=== PATIENT | female | born 1990 | race Caucasian/White ===

== ENCOUNTER → 2024-04-06 16:06 | Outpatient (CLI) | payer OTHER, SELFPAY ==
--- NOTE | 2024-04-06 16:09 | DI.US.S_ITS ---
PROCEDURE: US OB >= 14 WEEKS FETUS INDICATIONS: ANATOMY SCAN OUTSIDE/PRIOR DATING DATA: The calculations are made using the AMPARO of 06/25/2024. TECHNIQUE: Real-time scanning was performed of the fetus, with image documentation and biometric measurements. Endovaginal scanning: Not performed COMPARISON: None. FINDINGS: General: A single living intrauterine gestation is present. Presentation: Oblique. Placenta: Placental position is anterior , without previa. Amniotic fluid index: 20 cm, normal range is 5-24 cm. Single deepest vertical pocket is 8.2 cm. heart rate: 160 beats per minute. Maternal cervical canal: 3.3 cm long. Normal lower limit is 2.5 cm. biometrics: Biparietal diameter: 7 centimeter, 28 weeks 0 days Head circumference: 25.4 centimeters, 27 weeks 4 days Abdominal circumference: 26.2 centimeters, 30 weeks 2 days Femur length: 5.3 centimeters, 28 weeks 1 Clinically estimated gestational age: Weeks 4 days Composite gestational age from present scan: 28 weeks 4 days Estimated weight and percentile: 1349 grams, 68th percentile Anatomic survey: Neuro: Ventricles are non-dilated at less than 10 mm. Cisterna magna is normal at 3-11 mm. Cerebellum is normal in size and morphology. Nuchal skin fold: Normal at less than 6 mm between 14-21 weeks gestational age. Face: Nose and lips, facial profile are normal. Spine: Sacral spine not well visualized. Heart: 4-chambered heart is present, with normal ventricular outflow tracts. Diaphragm: Diaphragm is intact. Stomach: Left-sided stomach is present. Kidneys: No hydronephrosis. Normal is less than 5 mm in 2nd trimester, less than 7 mm in 3rd trimester. Cord: 3-vessel cord has orthotopic insertion. Bladder: Normal in size. Extremities: All 4 extremities identified. IMPRESSION: Single living intrauterine at 28 weeks 4 days, AMPARO 06/25/2024. Estimated weight of 1349 grams, 68th percentile. Sacral spine not well visualized. Remaining anatomy survey is within normal limits. We strive to produce accurate, complete, and clear reports of imaging services. To assist us in improving patient care, this report was composed using standard report templates and voice recognition software. Therefore, it may contain abnormal punctuation, insertions and/or omissions. Occasional wrong-word or sound-alike substitutions may occur. Though we review the report and make efforts to correct it, we do recommend that the report be read carefully in proper context to recognize any text inaccuracies. Dictated by: Micha Her M.D. on 04/06/2024 at 19:56 Approved by: Micha Her M.D. on 04/06/2024 at 20:07
== END ==
LOC: US 16:09
PROVIDERS: Referring Provider Advanced Practice Midwife; Visit Provider Advanced Practice Midwife
DX: Z34.83 Encounter for supervision of other normal pregnancy, third trimester (principal); Z3A.28 28 weeks gestation of pregnancy
CPT/HCPCS: 76811

== ENCOUNTER 2024-06-18 07:22 | Inpatient (IN) | payer OTHER, MEDICAID, SELFPAY ==
--- NOTE | 2024-06-18 07:47 | P.HPOB_ITS ---
OB HPI Date/Time Date of admission: 06/18/24 Date Patient Seen: 06/18/24 Time Patient Seen: 07:47 History of Present Condition Chief complaint: INDUCTION : 8 Para: 6 Estimated Date of Delivery: 06/25/24 Estimated Gestational Age (weeks): 39.0 Narrative: Noa Feng is a 33 year old female @ 39wks 0 days by 7wk US presents for elective IOL. Had a baez balloon placed in clinic that came out around midnight last night. Has noticed continued bloody show. +FM. No significant continued cramping or leaking of fluid. Uncomplicated care with CNMs, transferred in from [place], [place] at 26wks. Open to all interventions to begin labor, but planning no medications for analgesia or anesthesia. is supportive at her side. Indications Indication for induction OB: maternal discomfort (elective) History of Present care: good care, initiated at week # (6), number of visits (8) and pounds weight gain (42) Dating criteria: based on 1st trimester US only Ultrasounds: normal 1st trimester US and normal mid trimester US Obstetrical complications: none Medical complications: none Preadmission Labs Blood type: A (+) positive -: Antibody screen: negative, GBS status: negative, HBsAG: negative, HIV: negative and RPR/VDLR: negative -: Chlamydia screen: not detected and Gonorrhea screen: not detected -: Rubella: immune and Varicella: immune HCT: 37.5 HCAB: negative 1 hr GTT: 85 Narrative: Prior (ies) History: see above Evaluation Evaluation Baseline heart rate: 140 Variability: Moderate (11-25) monitor accelerations: Present Monitor Decelerations: Absent Contraction Frequency (minutes): 0 Uterine Contraction Intensity: Mild Status: Category l Dilation (cm): 5 Effacement (%): 80 Dilation: >/=5 cm Effacement: >/=80% station: -2 Position of cervix: posterior Consistency: soft Reese score: 9 PFSH Medical History (Updated 06/18/24 @ 07:57 by Lisa Price CNM) HSV-1 infection Surgical History (Updated 06/18/24 @ 07:57 by Lisa Price CNM) H/O oral surgery Social History (Updated 06/18/24 @ 08:01 by Lisa Price CNM) marital status: number of children: 6 household members: family and children lives independently: Yes caregiver/support person: No housing: house education level: college do you feel safe at home: Yes Smoking Status: Never smoker Meds Home Medications and Allergies Allergies Allergy/AdvReac Type Severity Reaction Status Date / Time ibuprofen Allergy Severe Anaphylaxis Verified 06/18/24 07:47 Review of Systems Review of Systems ROS: Yes All systems reviewed with the patient and are negative except as otherwise documented OB Exam Vital signs Blood Pressure: 122/75 Pulse Rate: 99 Temperature: 97.3 F Resp Effort & Inspection: normal respiratory effort and able to speak in complete sentences Auscultation: clear to auscultation bilaterally Cardio Rate: regular rate Rhythm: regular rhythm Presentation: vertex Objective Labs 06/18/24 08:25 Assessment and Plan Assessment and Plan Assessment and Plan narrative: A: Term Grand multipara Elective IOL, favorable No indication for antibiotics at this time Cat FHR P: Admit, routine orders with pitocin, per protocol. Discussed options for induction: breast pump for nipple stimulation vs. pitocin vs. AROM. Hammad elected pitocin which has been ordered. Reassess in 4 hours or sooner, PRN. Time-Based Coding :: [TOTAL MINUTES] spent with patient and on the chart (including review of chart, obtaining history, exam, reviewing outside data, placing orders, documenting exam and treatment plan, and counseling patient) on [DATE].
[2024-06-18 08:07] VITALS: BP 122/75; PULSE 99; TEMP 36.3
[2024-06-18] MEDS: LACTATED RINGERS 1,000 ML 100 ML IV (08:25)
[2024-06-18 09:06] LABS: Add Manual Diff / Slide Review NO; Basophils Absolute Auto 100 /uL (0-100); Basophils Percent Auto 0.4 % (0-2); Eosinophils Absolute Auto 500 /uL (0-450); Eosinophils Percent Auto 3.3 % (2-4); Hemoglobin 11.3 g/dL (12.0-16.0); Lymphocytes Absolute Auto 3000 /uL (1100-4500); Lymphocytes Percent Auto 20.9 % (25-40); Mean Corpuscular HGB Conc 33.1 % (30-36); Mean Corpuscular Volume 90.6 fL (80-100); Monocytes Absolute Auto 800 /uL (0-900); Monocytes Percent Auto 5.6 % (3-14); Neutrophils Absolute Auto 9900 /uL (1500-7000); Neutrophils Percent Auto 69.8 % (50-75); Platelet Count 267 X10^3/uL (150-400); Red Blood Cell Count 3.76 X10^6/uL (4.0-5.2); Red Cell Distribution Width 14.3 % (11.6-14.8); White Blood Cell Count 14.2 X10^3/uL (4.5-11.0)
[2024-06-18] MEDS: OXYTOCIN PREMIX 30 UNIT/500 ML PLAST..BAG IV (09:29)
[2024-06-18] MEDS: FAMOTIDINE 20 MG/2 ML VIAL IV (09:30)
--- NOTE | 2024-06-18 13:10 | PM.OBPNLAB ---
Date/Time Date Patient Seen: 06/18/24 Time Patient Seen: 13:00 Pain Control Pain control: tolerating well Comments: Coping well with strong, regular contractions, utilizing music, headphones, fan, touch and encouragement from . Hammad does not want her membranes ruptured at this time. and Hammad's mother supportive at bedside. VS: BP- 121/57, HR- 78, afebrile Pelvic Exam Dilation (cm): 7 Effacement (%): 80 station: -2 Amniotic membrane status: Bulging Contractions Monitor mode: External (Dionna) Pitocin rate (mU/min): 4 Contraction frequency (min): 1 (30 sec - 2 min) Contraction duration (min): 1 (45sec - 1 min) Contraction pattern: Regular Contraction intensity: Strong/Firm Status status: Category ll Heart Rate Baseline: 145 Monitor Accelerations: Absent Monitor Decelerations: Variable Monitor Variability: Moderate Comments: Overall reassuring Assessment and Plan Assessment: active labor Plan: continuous present management Comments: Labor progressing well with pitocin augmentation. Will titrate down the pitocin, as able. Continuous labor support. Expect second stage soon.
[2024-06-18 13:46] VITALS: BP 122/75
--- NOTE | 2024-06-18 15:17 | P.PCNOB_ITS ---
Events: Labor Induction (elective) Labor & Delivery Delivery date: 06/18/24 Intrapartal Events: None Cervical ripening method: per Baez bulb protocol Induction method: per pitocin protocol Delivery augmentation: rupture of membranes and pitocin Delivery monitor: external FHT and external uterine Route of delivery: Episiotomy description: None L&D Laceration Description: None Quantitative Blood Loss: 200 Anesthesia Type: None Complications: Elective IOL progressed well with baez balloon, pitocin (max dose 6mu/min) and AROM. Noa coped well with position changes, relaxation techniques and c ontinuous labor support by CNM, SNM and Hammad's and mother. Hammad labored on hands and knees until she asked for CNM to rupture membranes. AROM performed by CNM and revealed clear fluid and CE of 9cm. Hammad then moved to her L side where she began to feel a spontaneous urge to push and was presumed complete. of a single live vigorous baby boy in DELMAR over an intact vagina and perineum. No n uchal cord and the shoulders delivered easily. Baby was placed on maternal abdomen for drying and skin to skin. Pitocin given for active managment of the 3rd stage. Apgars 9/9. DCC until cord stopped pulsing at which point was double clamped by SNM and cut by FOB. Cord blood collected. Gunter delivery of apparently intact placenta, membranes and 3 vessel cord with maternal effort. Fundus immediately firm and bleeding minimal. QBL 200mL. Mother and baby skin to skin and stable when I left the room. [place] Baby 1: Infant gender: Male Presentation: vertex Position: Left Occiput Anterior Placenta delivery description: Spontaneous and Normal Configuration Cord Vessel Description: 3 Vessels score (1 min): 9 score (5 min): 9 weight: 4.076 kg Plan for aftercare: Routine care
[2024-06-18] MEDS: TRANEXAMIC ACID 1,000 MG in SODIUM CHLORIDE 0.9% 100 ML 600 MG IV (16:02)
[2024-06-18] MEDS: ACETAMINOPHEN 325 MG TABLET 650 MG PO ×2 (16:25→22:30)
[2024-06-18] MEDS: WITCH HAZEL/GLYCERIN PADS 1 EACH TOP (20:01)
[2024-06-18] MEDS: DERMOPLAST SPRAY 20% 60 ML 1 SPRAY TOP (20:01)
[2024-06-19] MEDS: ACETAMINOPHEN 325 MG TABLET 650 MG PO ×2 (04:26→10:08)
[2024-06-19] MEDS: DOCUSATE 100 MG CAPSULE 200 MG PO (08:17)
--- NOTE | 2024-06-19 09:39 | P.DS_ITS ---
Discharge Providers Provider Date of admission: 06/18/24 07:22 Discharge Date: 06/19/24 Primary care physician: DICK Garcia CNM Consults: 06/19/24 15:10 Consult to Inspector And Tester Routine Comment: Discharge provider: Lisa Price CNM Summary Hospital Course Date Patient Seen: 06/19/24 Time Patient Seen: 09:39 Diagnoses: O80 Hospital Course: Elective IOL with Craig balloon, pitocin and AROM led to NSVB with no lacerations. PPD1: Voiding, ambulating and independently. Tolerating a general diet. Cramping pain is well controlled with Tylenol. Vaginal bleeding is light to moderate, without clots. She is eager for discharge to home today. Her and kids are planning to be helpful at home. Peripartum Data Infant Delivery Method: Natural Vaginal Laceration Description: None Episiotomy description: None [place] 1: Gender: Male Disposition of : home Discharge Diagnosis (1) Encounter for full-term uncomplicated delivery: Status: Acute Problem Details: routine course Status at Discharge Cognitive/behavioral status at discharge: oriented and calm Functional status at discharge: independent ambulation Overall status at discharge: patient is progressing back to baseline Time Spent with Patient Time attestation: Total time spent providing and/or coordinating discharge services: Objective Labs 06/18/24 08:25 Labs: Laboratory Results - last 24 hr 06/18/24 08:25 Blood Type A Positive Antibody Screen Negative Exam Vital Signs (past 8 hours): BP 132/64, HR 72, RR 16, T 97.5F Temporal, Sp)2 98% on RA Const General: healthy appearing and comfortable Resp Effort & Inspection: normal respiratory effort and able to speak in complete sentences Other: Fundus firm @ U-1, lochia moderate, peineum intact Psych Appearance: grossly normal and well kempt Mental Status: mental status grossly normal Affect: normal affect Thought Process: normal Discharge Plan Discharge Plan Patient Disposition: Home Discharge orders & Medications Prescriptions: No Action No Known Home Medications Follow up/Referrals: Lisa Price CNM [[facility]] - (2 week and 6 week follow-up appointments scheduled and in your email) Diet/Activity/Treatments Diet: Diet as Tolerated and Regular Activity: minimal activity x 2 week, no heavy lifting for 4 weeks Skin/Wound/Dressing Care Report to your healthcare provider any signs of infection, such as:: chills, fever, increased pain, unusual drainage and unusual redness Visit Report/Discharge Packet Stand Alone Forms: Discharge: Care, Patient Portal/API, Stroke Signs & Symptoms
== END 2024-06-19 11:00 | disposition home or self-care (01) | DRG 807 ==
PROVIDERS: Admitting Provider Nurse Practitioner Obstetrics & Gynecology; Referring Provider Nurse Practitioner Obstetrics & Gynecology; Visit Provider Nurse Practitioner Obstetrics & Gynecology
DX: O80 Encounter for full-term uncomplicated delivery (principal); Z37.0 Single live birth; Z3A.39 39 weeks gestation of pregnancy
CPT/HCPCS: 36415; 59050; 85025; 86850; 86900; 86901; G0379; J2590

== ENCOUNTER 2024-12-27 10:34 | Emergency (ER) | payer OTHER, SELFPAY ==
[2024-12-27 10:38] VITALS: BP 118/68; PULSE 79; RESP 18; TEMP 36.2; O2SAT 97; BMI 29.9
--- NOTE | 2024-12-27 10:43 | DI.RAD.S_ITS ---
PROCEDURE: XR ANKLE RT MIN 3V INDICATIONS: felt crack, pain, swelling TECHNIQUE: 3 views of the ankle were acquired. COMPARISON: None. FINDINGS: Bones: No acute fractures or dislocations. Well corticated ossification inferior to the lateral malleolus is consistent with remote trauma. Ankle mortise is normally aligned. No suspicious bony lesions. Soft tissues: No tibiotalar joint effusion. Achilles tendon appears normal. IMPRESSION: No acute bony abnormality or significant effusion. Dictated by: Willie Rivero M.D. on 12/27/2024 at 11:25 Approved by: Willie Rivero M.D. on 12/27/2024 at 11:31
[2024-12-27 11:28] VITALS: RESP 14
--- NOTE | 2024-12-27 11:31 | ED_ITS ---
HPI - Extremity Injury (Lower) <Rupal Younger PA-C - Last Filed: 12/27/24 11:56> General Chief Complaint: Extremity Injury, Lower Stated Complaint: Possible broken right ankle Time Seen by Provider: 12/27/24 11:30 History of Present Illness HPI Narrative: 34-year-old female presents to the ED status post a right ankle injury sustained just prior to arrival. Patient states she was just getting out of the car when she landed on her right ankle which twisted. Since then, patient has had swelling, pain in the right lateral ankle area, patient is unable to bear weight due to pain. Patient does have a history of a prior ankle fracture in that same ankle. No numbness, tingling, weakness. Patient is currently . Allergic to ibuprofen. Related Data Home Medications Medication Instructions Recorded Confirmed No Known Home Medications 06/18/24 06/18/24 Allergies Allergy/AdvReac Type Severity Reaction Status Date / Time ibuprofen Allergy Severe Anaphylaxis Verified 06/18/24 07:47 Review of Systems <Rupal Younger PA-C - Last Filed: 12/27/24 11:56> Constitutional Constitutional: Denies chills, Denies fatigue, Denies fever(s), Denies frequent falls, Denies lethargy and Denies weakness Eyes Eyes: Denies change in vision, Denies eye discharge, Denies irritation and Denies loss of vision ENT Ears, Nose, Mouth, and Throat: Denies change in voice, Denies dizziness, Denies neck pain, Denies sore throat and Denies throat swelling Cardiovascular Cardiovascular: Denies chest pain, Denies irregular heart rhythm, Denies lightheadedness, Denies palpitations, Denies dyspnea, Denies dyspnea on exertion and Denies orthopnea Respiratory Respiratory: Denies cough, Denies dyspnea, Denies dyspnea on exertion and Denies wheezing Gastrointestinal Gastrointestinal: Denies abdominal pain, Denies change in bowel habits, Denies diarrhea, Denies nausea and Denies vomiting Musculoskeletal Musculoskeletal: Denies neck pain and Denies numbness Comments: Right ankle swelling, pain Integumentary/Breasts Skin/Breast: Denies pruritus, Denies erythema, Denies rash and Denies wounds Neurologic Neurologic: Denies behavioral changes, Denies confusion, Denies dizziness, Denies frequent falls, Denies loss of vision, Denies numbness and Denies weakness Psychiatric Psychiatric: Denies anxiety, Denies behavioral changes, Denies confusion, Denies depression, Denies homicidal ideation and Denies suicidal ideation Endocrine Endocrine: Denies fatigue, Denies flushing and Denies palpitations Hematologic/Lymphatic Hematologic/Lymphatic: Denies easy bruising Allergic/Immunologic Allergic/Immunologic: Denies urticaria, Denies throat swelling and Denies wheezing Patient History <Rupal Younger PA-C - Last Filed: 12/27/24 11:56> Medical History HSV-1 infection Surgical History H/O oral surgery Social History marital status: number of children: 6 household members: family and children lives independently: Yes caregiver/support person: No housing: house education level: college do you feel safe at home: Yes Smoking Status: Never smoker Smoking Status: Never smoker Exam <Rupal Younger PA-C - Last Filed: 12/27/24 11:56> Narrative Exam Narrative: Const General:?cooperative, healthy appearing and comfortable [facility] Head:?normal to inspection Ears:?hearing grossly normal bilaterally Nose:?external nose normal Face and sinus:?normal facial exam and sinuses nontender Mouth:?oral mucosae normal Throat:?posterior oropharynx normal Eyes General:?appearance normal, both eyes and all related structures Neck Neck:?normal visual inspection and no lymphadenopathy noted Resp Effort & Inspection:?normal respiratory effort Auscultation:?clear to auscultation bilaterally Cardio Rate:?regular rate Rhythm:?regular rhythm Musculoskeletal There is some swelling, tenderness to palpation in the region of the lateral malleolus of the right ankle. Unable to bear weight due to pain. Sensation is intact. No bruising. No deformities. Neurovascularly intact. Neuro General:?patient alert, patient awake and patient oriented x3 Initial Vital Signs Initial Vital Signs: Vital Signs Temperature 97.1 F L 12/27/24 10:38 Pulse Rate 79 12/27/24 10:38 Respiratory Rate 18 12/27/24 10:38 Blood Pressure 118/68 12/27/24 10:38 Pulse Oximetry 97 12/27/24 10:38 Oxygen Delivery Method Room Air 12/27/24 10:38 <Brenda Choudhury DO - Last Filed: 12/27/24 16:44> Initial Vital Signs Initial Vital Signs: Vital Signs Temperature 97.1 F L 12/27/24 10:38 Pulse Rate 79 12/27/24 10:38 Respiratory Rate 18 12/27/24 10:38 Blood Pressure 118/68 12/27/24 10:38 Pulse Oximetry 97 12/27/24 10:38 Oxygen Delivery Method Room Air 12/27/24 10:38 Course <Rupal Younger PA-C - Last Filed: 12/27/24 11:56> Orders Ordered: ED Orders 12/27/24 10:43 XR ankle RT min 3V Stat Discontinued Medications Acetaminophen (Acetaminophen 325 Mg Tablet) 975 mg PO NOW ONE Stop: 12/27/24 11:31 Last Admin: 12/27/24 11:34 Dose: 975 mg Documented By: SPF Vital Signs Vital signs: Vital Signs - 8 hr 12/27/24 10:38 12/27/24 11:28 12/27/24 11:50 Temperature 97.1 F L Pulse Rate 79 74 Respiratory Rate 18 14 14 Blood Pressure 118/68 117/73 Pulse Oximetry 97 97 Oxygen Delivery Method Room Air Room Air <Brenda Choudhury DO - Last Filed: 12/27/24 16:44> Orders Ordered: ED Orders 12/27/24 10:43 XR ankle RT min 3V Stat Discontinued Medications Acetaminophen (Acetaminophen 325 Mg Tablet) 975 mg PO NOW ONE Stop: 12/27/24 11:31 Last Admin: 12/27/24 11:34 Dose: 975 mg Documented By: SPF Vital Signs Vital signs: Vital Signs - 8 hr 12/27/24 10:38 12/27/24 11:28 12/27/24 11:50 Temperature 97.1 F L Pulse Rate 79 74 Respiratory Rate 18 14 14 Blood Pressure 118/68 117/73 Pulse Oximetry 97 97 Oxygen Delivery Method Room Air Room Air MDM - Extremity Injury (Lower) <Rupal Younger PA-C - Last Filed: 12/27/24 11:56> Lab Data Labs: Point of Care Testing Test Results Negative MDM Narrative Medical decision making narrative: 34-year-old female presents to the ED status post a right ankle injury sustained just prior to arrival. X-ray was obtained which shows no acute bony abnormality or significant effusion. There is a well corticated ossification inferior to the lateral malleolus which is consistent with remote trauma. Discussed findings with patient. Ankle was Artur wrapped, crutches provided for ambulation. Patient was given Tylenol for pain control. Recommend RICE, heat after 24 hours, Tylenol. Weight-bearing as tolerated. Recommend follow-up with PCP as soon as possible. ED return precautions were discussed with patient. Patient verbalized understanding. Medical records reviewed: Yes <Brenda Choudhury DO - Last Filed: 12/27/24 16:44> Lab Data Labs: Point of Care Testing Test Results Negative Discharge Plan Departure Patient Disposition: Home Clinical Impression: Ankle sprain and strain Instructions: DI for Ankle Sprain Activity Restrictions/Additional Instructions: Were evaluated in the ED today for an ankle injury. The x-ray did not show any fractures or dislocations. It appears that you have sprained your right ankle. You your ankle has been Artur wrapped for comfort and healing. You have been provided crutches to get around. You may start bearing weight as tolerated. You may rest, elevate your ankle above heart level to reduce swelling and pain. You may apply ice for the 1st 24 hours, followed by heat. You may take Tylenol for pain. Please follow-up with your PCP as soon as possible. Return to the ED if you have worsening symptoms, numbness, tingling, weakness. Prescriptions: No Action No Known Home Medications Stand Alone Forms: Patient Portal/API/Survey ED Sign-out <Brenda Choudhury DO - Last Filed: 12/27/24 16:44> Cosign ED Attending Coszayature Attestation: I was immediately available in the department for consultation.
[2024-12-27] MEDS: ACETAMINOPHEN 325 MG TABLET 975 MG PO (11:34)
[2024-12-27 11:50] VITALS: BP 117/73; PULSE 74; RESP 14; O2SAT 97
== END 2024-12-27 11:55 | disposition home or self-care (01) ==
PROVIDERS: Emergency Provider Student in an Organized Health Care Education/Training Program
DX: S93.401A Sprain of unspecified ligament of right ankle, initial encounter (principal); X50.1XXA Overexertion from prolonged static or awkward postures, initial encounter
CPT/HCPCS: 73610; 81025; 99283

== ENCOUNTER 2025-07-24 04:01 | Emergency (ER) | payer OTHER, SELFPAY ==
[2025-07-24 04:06] VITALS: BP 129/76; PULSE 71; RESP 18; TEMP 36.5; O2SAT 98; BMI 30.7
--- NOTE | 2025-07-24 04:21 | ED_ITS ---
HPI - Back Pain/Injury
--- NOTE | 2025-07-24 04:21 | ED.BACK ---
HPI - Back Pain/Injury General Chief Complaint: Back Pain/Injury Stated Complaint: per pt Lupus Flare Up Time Seen by Provider: 07/24/25 04:03 Source: patient History of Present Illness HPI Narrative: 34-year-old female with a history of lupus presents with mid back pain and upper back pain that she is associating with potential lupus flare up. She denies any other symptoms. Related Data Previous Rx's ?Medication ?Instructions ?Recorded prednisone 50 mg tablet 50 mg PO DAILY #5 tabs 07/24/25 Allergies Allergy/AdvReac Type Severity Reaction Status Date / Time ibuprofen Allergy Severe Anaphylaxis Verified 07/24/25 04:07 Review of Systems Review of Systems ROS Unobtainable: All systems reviewed & are unremarkable except as noted in HPI and below Patient History Medical History HSV-1 infection Surgical History H/O oral surgery Social History marital status: number of children: 6 household members: family and children lives independently: Yes caregiver/support person: No housing: house education level: college do you feel safe at home: Yes Smoking Status: Never smoker Exam Narrative Exam Narrative: General: Patient appears to be in no acute distress, acting appropriately Head: normocephalic, atraumatic, HEENT: Pupils equal round reactive, eyes tracking well, neck supple, no JVD Heart: regular rate and rhythm, no murmurs, rubs, or gallops heard Lungs: clear to auscultation, no adventitious sounds Abdomen: soft , nontender, nondistended, positive bowel sounds Neurological: no focal neurological signs, moving all extremities well, alert and oriented x3, Psych: good judgment ,good insight, mood is normal. Initial Vital Signs Initial Vital Signs: Vital Signs Temperature 97.7 F 07/24/25 04:06 Pulse Rate 71 07/24/25 04:06 Respiratory Rate 18 07/24/25 04:06 Blood Pressure 129/76 07/24/25 04:06 Pulse Oximetry 98 07/24/25 04:06 Oxygen Delivery Method Room Air 07/24/25 04:06 Course Orders Ordered: ED Orders 07/24/25 04:12 CRP [C-Reactive Protein Quant] Stat ESR [Erythrocyte Sedimentation Rate] Stat 07/24/25 04:13 CBC Auto Diff [Complete Blood Count AUTO DIFF] Stat CMP [Comprehensive Metabolic Panel] Stat Discontinued Medications Methylprednisolone (Methylprednisolone Succ 125 Mg/2 Ml Vial) 125 mg IV NOW ONE Stop: 07/24/25 04:20 Last Admin: 07/24/25 04:36 Dose: 125 mg Ondansetron HCl (Ondansetron 4 Mg/2 Ml Inj) 4 mg IV NOW ONE Stop: 07/24/25 04:47 Last Admin: 07/24/25 04:58 Dose: 4 mg Reevaluation(s) Reevaluation #1: Upon re-evaluation, patient doing better with Solu-Medrol Vital Signs Vital signs: Vital Signs - 8 hr 07/24/25 04:06 07/24/25 06:08 Temperature 97.7 F 98.2 F Pulse Rate 71 63 Respiratory Rate 18 20 Blood Pressure 129/76 128/80 Pulse Oximetry 98 98 Oxygen Delivery Method Room Air Room Air MDM - Back Pain/Injury Lab Data 07/24/25 04:22 07/24/25 04:22 Labs: Lab Results 07/24/25 Range/Units 04:22 WBC 12.5 H (4.5-11.0) X10^3/uL RBC 4.34 (4.0-5.2) X10^6/uL Hgb 13.6 (12.0-16.0) g/dL Hct 39.6 (36-46) % MCV 91.1 (80-100) fL MCH 31.3 (26-34) PG MCHC 34.4 (30-36) % RDW 13.7 (11.6-14.8) % Plt Count 323 (150-400) X10^3/uL Neut % (Auto) 76.9 H (50-75) % Lymph % (Auto) 17.4 L (25-40) % [place] % (Auto) 2.7 L (3-14) % Eos % (Auto) 2.7 (2-4) % Baso % (Auto) 0.3 (0-2) % Neut # (Auto) 9600 H (7126-9220) /uL Lymph # (Auto) 2200 (9897-7925) /uL [place] # (Auto) 300 (0-900) /uL Eos # (Auto) 300 (0-450) /uL Baso # (Auto) 0 (0-100) /uL ESR 11 (0-20) MM/HR Sodium 138 (137-145) mmol/L Potassium 4.0 (3.4-5.1) mmol/L Chloride 105 (98-107) mmol/L Carbon Dioxide 24 (22-32) mmol/L BUN 15 (7-17) mg/dL Creatinine 0.60 (0.52-1.04) mg/dL Estimated GFR > 60 (>60) mL/min BUN/Creatinine Ratio 25.0 H (6-22) Glucose 119 H (70-99) mg/dL Calcium 8.6 (8.4-10.2) mg/dL Total Bilirubin 0.6 (0.2-1.3) mg/dL AST 23 (14-36) IU/L ALT 17 (<35) IU/L Alkaline Phosphatase 72 (38-126) U/L C-Reactive Protein < 0.5 (<1.0) mg/dL Total Protein 7.6 (6.3-8.2) g/dL Albumin 4.6 (3.5-5.0) g/dL Globulin 3.0 (1.7-4.1) g/dL Albumin/Globulin Ratio 1.5 (1.0-2.8) MDM Narrative Medical decision making narrative: 34-year-old female with a history of lupus and potential flare up who improved with Solu-Medrol here in the ED. her inflammatory markers were normal here in the ED which points to a less likely inflammatory response but considering her responsiveness to steroids we will go ahead and prescribe her high-dose prednisone to be taken over the next 5 days in order to keep this flare up controlled. Advised to follow up and establish with a PCP for a rheumatology follow up. Can come back sooner if symptoms not controlled. Discharge Plan Departure Patient Disposition: Home Clinical Impression: Lupus Instructions: Lupus (Alternative Therapy), DI for Systemic Lupus Erythematosus Activity Restrictions/Additional Instructions: Take meds as prescribed for the next 5 days. No need for medications if not having a flare-up. Come back sooner if medication not assisting. Follow up with PCP for rheumatology referral. Prescriptions: New prednisone 50 mg tablet 50 mg PO DAILY Qty: 5 0RF Stand Alone Forms: Patient Portal/API
[2025-07-24 04:29] LABS: Add Manual Diff / Slide Review NO; Hematocrit 39.6 % (36-46); Hemoglobin 13.6 g/dL (12.0-16.0); Lymphocytes Absolute Auto 2200 /uL (1100-4500); Mean Corpuscular HGB Conc 34.4 % (30-36); Mean Corpuscular Hemoglobin 31.3 PG (26-34); Mean Corpuscular Volume 91.1 fL (80-100); Platelet Count 323 X10^3/uL (150-400)
[2025-07-24] MEDS: methylPREDNISolone succ 125 MG/2 ML VIAL IV (04:36)
[2025-07-24 04:42] LABS: Alanine Aminotransferase 17 IU/L (<35); Albumin 4.6 g/dL (3.5-5.0); Albumin Globulin Ratio 1.5 (1.0-2.8); Alkaline Phosphatase 72 U/L (38-126); Blood Urea Nitrogen 15 mg/dL (7-17); Calcium 8.6 mg/dL (8.4-10.2); Carbon Dioxide 24 mmol/L (22-32); Chloride 105 mmol/L (98-107); Estimated Glomerular Filt Rate > 60 mL/min (>60); Globulin 3.0 g/dL (1.7-4.1); Glucose 119 mg/dL (70-99); HEMOLYSIS 19 (0-50); Potassium 4.0 mmol/L (3.4-5.1); Sodium 138 mmol/L (137-145); Total Protein 7.6 g/dL (6.3-8.2)
[2025-07-24] MEDS: ONDANSETRON 4 MG/2 ML INJ IV (04:58)
[2025-07-24 06:08] VITALS: BP 128/80; PULSE 63; RESP 20; TEMP 36.8; O2SAT 98
== END 2025-07-24 06:17 | disposition home or self-care (01) ==
PROVIDERS: Emergency Provider Family Medicine
DX: M32.9 Systemic lupus erythematosus, unspecified (principal)
CPT/HCPCS: 36415; 80053; 85025; 85651; 86140; 96374; 96375; 99284; J2405; J2919

== ENCOUNTER 2025-08-02 08:32 | Emergency (ER) | payer OTHER, SELFPAY ==
[2025-08-02] VITALS (12 sets, daily range): BP systolic 92–125; BP diastolic 53–83; PULSE 70–94; RESP 16–18; TEMP 36.4; O2SAT 97–99; BMI 29.9
[2025-08-02] MEDS: ACETAMINOPHEN IV 1,000 MG/100 ML VIAL 400 MG IV (09:13)
[2025-08-02 09:18] LABS: Add Manual Diff / Slide Review NO; Hematocrit 40.3 % (36-46); Hemoglobin 13.5 g/dL (12.0-16.0); Lymphocytes Absolute Auto 2500 /uL (1100-4500); Mean Corpuscular HGB Conc 33.5 % (30-36); Mean Corpuscular Hemoglobin 31.0 PG (26-34); Mean Corpuscular Volume 92.5 fL (80-100); Platelet Count 333 X10^3/uL (150-400)
[2025-08-02 09:24] LABS: Alanine Aminotransferase 15 IU/L (<35); Albumin 4.3 g/dL (3.5-5.0); Albumin Globulin Ratio 1.5 (1.0-2.8); Alkaline Phosphatase 61 U/L (38-126); Blood Urea Nitrogen 9 mg/dL (7-17); Calcium 8.4 mg/dL (8.4-10.2); Carbon Dioxide 27 mmol/L (22-32); Chloride 104 mmol/L (98-107); Estimated Glomerular Filt Rate > 60 mL/min (>60); Globulin 2.9 g/dL (1.7-4.1); Glucose 110 mg/dL (70-99); HEMOLYSIS < 15 (0-50); Potassium 3.9 mmol/L (3.4-5.1); Sodium 137 mmol/L (137-145); Total Protein 7.2 g/dL (6.3-8.2)
[2025-08-02 09:35] LABS: Pregnancy Test Serum,Qual Negative (Negative)
--- NOTE | 2025-08-02 12:02 | ED.BACK ---
HPI - Back Pain/Injury General Chief Complaint: Back Pain/Injury Stated Complaint: Mid back pain, hurts to breathe, 1 day Time Seen by Provider: 08/02/25 08:49 Source: patient History of Present Illness HPI Narrative: 31-year-old female with history of lupus intermittent musculoskeletal back pain in the past. Recently gave approximately 1 year ago, still . Recently began menstruating again. Presenting with 2nd visit in 1 week for right-sided mid back musculoskeletal pain that radiates around the chest. Denies fevers, chills, nausea, vomiting, diarrhea, abdominal pain, shortness of breath, dizziness, headache, or urinary symptoms. Related Data Previous Rx's ?Medication ?Instructions ?Recorded prednisone 50 mg tablet 50 mg PO DAILY #5 tabs 07/24/25 dexamethasone 4 mg tablet 4 mg PO .once #3 tabs 08/02/25 Allergies Allergy/AdvReac Type Severity Reaction Status Date / Time ibuprofen Allergy Severe Anaphylaxis Verified 08/02/25 08:51 Review of Systems Review of Systems ROS Unobtainable: All systems reviewed & are unremarkable except as noted in HPI and below Patient History Medical History HSV-1 infection Surgical History H/O oral surgery Social History marital status: number of children: 6 household members: family and children lives independently: Yes caregiver/support person: No housing: house education level: college do you feel safe at home: Yes Smoking Status: Never smoker Exam Initial Vital Signs Initial Vital Signs: Vital Signs Temperature 97.6 F 08/02/25 08:44 Pulse Rate 85 08/02/25 08:44 Respiratory Rate 18 08/02/25 08:44 Blood Pressure 125/83 08/02/25 08:44 Pulse Oximetry 99 08/02/25 08:44 Oxygen Delivery Method Room Air 08/02/25 08:44 Const General: cooperative, healthy appearing, comfortable, well developed and well hydrated Nutritional Appearance: average body habitus HENMT Head: normal to inspection Ears: external ears normal Nose: external nose normal and nares normal Face and sinus: sinuses nontender, face symmetric, ecchymosis not on the right, not on the left and not bilaterally, erythema not on the right, not on the left and not bilaterally and edema not on the right, not on the left and not bilaterally Mouth: lip normal Eyes General: Yes appearance normal, both eyes and all related structures Eyelids: eyelids normal Sclera: sclerae normal Pupils: PERRL Neck Neck: normal visual inspection Resp Effort & Inspection: normal respiratory effort and able to speak in complete sentences Cardio Rate: regular rate Rhythm: regular rhythm Pulses: radial pulses present GI Inspection: normal to inspection and non-distended General: bimanual renal exam normal bilaterally Back/Spine/Pelvis Back: normal to inspection, No back tenderness, No crepitance, No CVA tenderness, No ecchymosis, No erythema, No mass and No warmth Thoracic/Lumbar Spine: thoracic and lumbar spine normal to inspection, paraspinal tenderness (Slight paraspinal muscular tenderness on the right.) and No lumbar spinal tenderness Skin General: no rashes or lesions noted Neuro General: patient alert, patient awake, patient oriented x3, gait normal, moves all extremities, normal light touch, pain and propioception, no focal motor deficits and CN's II-XI intact bilaterally Cognition: normal cognition Speech: speech normal Gait: normal gait Motor: muscle tone normal throughout Sensory Exam: no sensory deficits noted Extrem General: normal to inspection Psych Appearance: grossly normal Mental Status: mental status grossly normal Speech and Movement: speech and movement normal Mood: congruent mood Attitude: cooperative Thought Process: normal Thought Content: normal Judgment: judgment good Course Course Course Narrative: Pt presents w/ low back pain, normal neuro exam, no red flags, well appearing. Given that patient has a history of lupus and came in due to primary renal concern will order lab work to assess creatinine. Patient does not have any CVA tenderness and therefore no clinical concern for renal failure at this time. Patient also with no swelling or hematuria. labs performed as I considered but do not suspect severe anemia, electrolyte abnl (including hypokalemia, hyperkalemia, hypernatremia, hyponatremia, hyperglycemia, hypoglycemia, etc). No CT/MRI spine performed as I considered but do not suspect epidural abscess/cauda equina/acute fx/acute spine emergency. Will give IV/PO pain meds, d/c w pain meds, f/u clinic in 1-3dys for further outpt eval. Told to return for worsening condition. Additional Information: Patient feeling better after medication, will give 1 dose of dexamethasone here as well as a prescription for home. Patient advised to follow up with Rheumatology for her lupus Orders Ordered: ED Orders 08/02/25 09:06 CBC Auto Diff [Complete Blood Count AUTO DIFF] Stat Comprehensive Metabolic Panel Stat Test Serum,Qual Stat Discontinued Medications Acetaminophen (Ofirmev) 1,000 mg in 100 mls @ 400 mls/hr IV NOW ONE Stop: 08/02/25 09:14 Last Infusion: 08/02/25 09:42 Dose: Infused Documented By: Admin: 08/02/25 09:13 Dose: 400 mls/hr Documented By: JONY Lorazepam (Lorazepam 2 Mg/Ml Inj) 1 mg IV NOW ONE Stop: 08/02/25 09:01 Last Admin: 08/02/25 09:12 Dose: 1 mg Documented By: JONY Vital Signs Vital signs: Vital Signs - 8 hr 08/02/25 08:44 08/02/25 09:22 08/02/25 09:30 Temperature 97.6 F Pulse Rate 85 84 82 Respiratory Rate 18 Blood Pressure 125/83 Pulse Oximetry 99 97 97 Oxygen Delivery Method Room Air 08/02/25 09:30 08/02/25 10:00 08/02/25 10:00 Temperature Pulse Rate 70 Respiratory Rate Blood Pressure 100/57 L 92/53 L Pulse Oximetry 97 Oxygen Delivery Method 08/02/25 10:11 08/02/25 10:11 08/02/25 10:30 Temperature Pulse Rate 84 Respiratory Rate Blood Pressure 114/57 L 103/58 L Pulse Oximetry 98 Oxygen Delivery Method 08/02/25 10:30 08/02/25 11:00 08/02/25 11:00 Temperature Pulse Rate 73 79 Respiratory Rate Blood Pressure 105/55 L Pulse Oximetry 98 97 Oxygen Delivery Method MDM - Back Pain/Injury Lab Data 08/02/25 09:06 08/02/25 09:06 Labs: Lab Results 08/02/25 Range/Units 09:06 WBC 13.2 H (4.5-11.0) X10^3/uL RBC 4.35 (4.0-5.2) X10^6/uL Hgb 13.5 (12.0-16.0) g/dL Hct 40.3 (36-46) % MCV 92.5 (80-100) fL MCH 31.0 (26-34) PG MCHC 33.5 (30-36) % RDW 14.1 (11.6-14.8) % Plt Count 333 (150-400) X10^3/uL Neut % (Auto) 70.3 (50-75) % Lymph % (Auto) 18.9 L (25-40) % [place] % (Auto) 6.3 (3-14) % Eos % (Auto) 4.1 H (2-4) % Baso % (Auto) 0.4 (0-2) % Neut # (Auto) 9300 H (9814-4925) /uL Lymph # (Auto) 2500 (9943-6185) /uL [place] # (Auto) 800 (0-900) /uL Eos # (Auto) 500 H (0-450) /uL Baso # (Auto) 100 (0-100) /uL Sodium 137 (137-145) mmol/L Potassium 3.9 (3.4-5.1) mmol/L Chloride 104 (98-107) mmol/L Carbon Dioxide 27 (22-32) mmol/L BUN 9 (7-17) mg/dL Creatinine 0.57 (0.52-1.04) mg/dL Estimated GFR > 60 (>60) mL/min BUN/Creatinine Ratio 15.8 (6-22) Glucose 110 H (70-99) mg/dL Calcium 8.4 (8.4-10.2) mg/dL Total Bilirubin 0.4 (0.2-1.3) mg/dL AST 17 (14-36) IU/L ALT 15 (<35) IU/L Alkaline Phosphatase 61 (38-126) U/L Total Protein 7.2 (6.3-8.2) g/dL Albumin 4.3 (3.5-5.0) g/dL Globulin 2.9 (1.7-4.1) g/dL Albumin/Globulin Ratio 1.5 (1.0-2.8) Serum , Qual Negative (Negative) Urine Dip Bedside Urine Glucose Negative Bedside Urine Bilirubin - Negative Bedside Urine Ketone - Negative Urine Specific [place] 1.020 Bedside Urine Occult Blood - Negative Bedside Urine pH 6.0 Bedside Urine Protein - Negative Bedside Urine Urobilinogen - Negative Bedside Urine Nitrite - Negative Bedside Urine Leukocytes - Negative Esterase Discharge Plan Departure Patient Disposition: Home Clinical Impression: Musculoskeletal back pain Instructions: DI for Muscle Strain, DI for Back Strain or Sprain Prescriptions: New dexamethasone 4 mg tablet 4 mg PO .once Qty: 3 0RF Rx Instructions: Please take at a minimum of 72 hours after your last dose if your pain gets worse. No Action prednisone 50 mg tablet 50 mg PO DAILY Qty: 5 0RF Stand Alone Forms: Patient Portal/API
== END 2025-08-02 13:03 | disposition home or self-care (01) ==
PROVIDERS: Emergency Provider Emergency Medicine
DX: M54.6 Pain in thoracic spine (principal)
CPT/HCPCS: 36415; 80053; 81003; 84703; 85025; 96365; 96375; 99284; J0131; J1100; J2060

== ENCOUNTER 2025-08-09 17:31 | Observation (INO) | payer OTHER, SELFPAY ==
[2025-08-09 17:37] VITALS: BP 126/76; PULSE 75; RESP 18; TEMP 37; O2SAT 99; BMI 30.7
--- NOTE | 2025-08-09 17:43 | DI.RAD.S_ITS ---
PROCEDURE: XR CHEST 1V INDICATIONS: Chest Pain TECHNIQUE: One view of the chest was acquired. COMPARISON: None. FINDINGS: Surgical changes and devices: None. Lungs and pleura: Lungs are clear. No pleural effusions or pneumothorax. Mediastinum: Mediastinal contours appear normal. Heart size is normal. Bones and chest wall: No suspicious bony lesions. Overlying soft tissues appear unremarkable. IMPRESSION: No acute cardiopulmonary abnormality is seen. Dictated by: Micha Her M.D. on 08/09/2025 at 18:12 Approved by: Micha Her M.D. on 08/09/2025 at 18:12
--- NOTE | 2025-08-09 17:43 | EKG_ITS ---
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
--- NOTE | 2025-08-09 17:47 | ED_ITS ---
<Statement entered by Dakota Hernandez MD - 08/09/25 23:09> Case was discussed, agree with the plan for admission and surgical consultation HPI - Chest Pain General Chief Complaint: Back Pain/Injury Stated Complaint: Upper back pain, worsens with inhalation Time Seen by Provider: 08/09/25 17:37 Source: patient Mode of arrival: Ambulatory Limitations: no limitations History of Present Illness HPI narrative: Ms. Feng is a pleasant 34-year-old female with a past medical history of lupus, currently does not have a doctor, who presents to the emergency department for her 3rd visit since 07/24/25 for bilateral back/rib pain, worse with inhalation. Patient states about 3 weeks ago she started developing mid/upper back pain that wraps around to the front of her chest/abdomen below both breasts with a deep breath. She denies any inciting injury. States that at 1st she thought her symptoms were due to a lupus flare because she had a lupus flare many years ago that presented with back pain. She was treated in the emergency department 2 separate times on 07/24/2025 and 08/02/2025 with steroids and her symptoms improved with steroids but return immediately upon completion of the steroids. The pain is impacting her life significantly and she reports that it is 7/10 currently. She does not feel substernal chest pain or short of breath but she is unable to take a full breath. She denies central abdominal pain, nausea, vomiting, diarrhea, constipation, dysuria, fevers, chills, coughing, leg swelling or calf pain. No history of VTE. Related Data Previous Rx's ?Medication ?Instructions ?Recorded prednisone 50 mg tablet 50 mg PO DAILY #5 tabs 07/24 dexamethasone 4 mg tablet 4 mg PO .once #3 tabs dexamethasone 4 mg tablet 4 mg PO DAILY #3 tabs Allergies Allergy/AdvReac Type Severity Reaction Status Date / Time ibuprofen Allergy Severe Anaphylaxis Verified 08/02/25 08:51 Review of Systems Review of Systems ROS Unobtainable: All systems reviewed & are unremarkable except as noted in HPI and below Patient History Medical History HSV-1 infection Surgical History H/O oral surgery Social History marital status: number of children: 6 household members: family and children lives independently: Yes caregiver/support person: No housing: house education level: college do you feel safe at home: Yes Exam Narrative Exam Narrative: GENERAL: 34 year old patient appears stated age. Well-developed patient, in no acute distress. HEAD: Atraumatic. Normocephalic. EYES: No scleral icterus. No injection or drainage. NECK: Trachea midline. Cervical ROM intact. CARDIOVASCULAR: Regular rate and rhythm. RESPIRATORY: ?Nonlabored respirations. ?Speaking in clear, full sentences. ?Clear to auscultation. Breath sounds equal bilaterally. No wheezes, rales, or rhonchi. ? GASTROINTESTINAL: Abdomen soft, non-distended. Tenderness with deep palpation RUQ. No LUQ, LLQ, RLQ tenderness. No reboud or guarding. EXTREMITIES: No LE edema or calf tenderness. BACK: Subjective pain originating in the midthoracic region with radiation along the ribcage below the bilateral breasts. Pain is reproducible with deep breath but not with palpation. No midline spinal tenderness. NEURO: AOx3. ?Clear speech. ?Moves all 4 extremities appropriately. SKIN: No rash or erythema of visible areas including the chest/back. Initial Vital Signs Initial Vital Signs: Vital Signs Temperature 98.6 F 08/09/25 17:37 Pulse Rate 75 08/09/25 17:37 Respiratory Rate 18 08/09/25 17:37 Blood Pressure 126/76 08/09/25 17:37 Pulse Oximetry 99 08/09/25 17:37 Oxygen Delivery Method Room Air 08/09/25 17:37 Course Orders Ordered: ED Orders 08/09/25 17:43 XR chest 1V Stat EKG-12 Lead Stat 08/09/25 17:47 Urine Microscopic Stat 08/09/25 17:49 [place] to [facility] [facility] Stat 08/09/25 17:54 CT angio chest PE protocol Stat 08/09/25 18:14 US abdomen limited Stat 08/09/25 18:18 Complete Blood Count AUTO DIFF Stat Comprehensive Metabolic Panel Stat Lipase Stat Magnesium Stat NT-proBNP (BNP-Adult 18+) Stat PTT Partial Thromboplastin Alvaro Stat Prothrombin Time INR Stat Troponin & CK Cardiac Panel Stat Sodium Chloride (Normal Saline 0.9%) 1,000 mls @ 1,000 mls/hr IV BOLUS ONE Stop: 08/09/25 19:52 Last Admin: 08/09/25 19:05 Dose: 1,000 mls/hr Documented By: RUBEN Metronidazole (Flagyl) 500 mg in 100 mls @ 100 mls/hr IV NOW ONE Stop: 08/09/25 20:20 Last Admin: 08/09/25 19:41 Dose: 100 mls/hr Morphine Sulfate (Morphine 4 Mg/Ml Inj) 4 mg IV NOW PRN PRN Reason: Pain, Severe (7-10) Last Admin: 08/09/25 19:39 Dose: 4 mg Ondansetron HCl (Ondansetron 4 Mg/2 Ml Inj) 4 mg IV Q6HR PRN PRN Reason: Nausea And Vomiting Last Admin: 08/09/25 19:40 Dose: 4 mg Discontinued Medications Hydrocodone Bitart/Acetaminophen (Hydrocodone/Acet 5/325 Tablet) 1 tab PO NOW ONE Stop: 08/09/25 17:55 Last Admin: 08/09/25 18:02 Dose: 1 tab Documented By: CHRISTIAN Ceftriaxone Sodium 1,000 mg/ (Sodium Chloride) 100 mls @ 200 mls/hr IV NOW ONE Stop: 08/09/25 19:17 Last Admin: 08/09/25 19:40 Dose: 200 mls/hr Vital Signs Vital signs: Vital Signs - 8 hr 08/09/25 17:37 Temperature 98.6 F Pulse Rate 75 Respiratory Rate 18 Blood Pressure 126/76 Pulse Oximetry 99 Oxygen Delivery Method Room Air MDM - Chest Pain Medical Records Data Attestation: I reviewed the patient's medical records. Lab Data 08/09/25 18:18 08/09/25 18:18 Labs: Lab Results 08/09/25 08/09/25 Range/Units 17:47 18:18 WBC 13.1 H (4.5-11.0) X10^3/uL RBC 3.87 L (4.0-5.2) X10^6/uL Hgb 12.0 (12.0-16.0) g/dL Hct 35.5 L (36-46) % MCV 91.7 (80-100) fL MCH 30.9 (26-34) PG MCHC 33.7 (30-36) % RDW 14.1 (11.6-14.8) % Plt Count 303 (150-400) X10^3/uL Neut % (Auto) 51.8 (50-75) % Lymph % (Auto) 36.7 (25-40) % [place] % (Auto) 8.1 (3-14) % Eos % (Auto) 2.9 (2-4) % Baso % (Auto) 0.5 (0-2) % Neut # (Auto) 6800 (2487-1715) /uL Lymph # (Auto) 4800 H (5428-7602) /uL [place] # (Auto) 1100 H (0-900) /uL Eos # (Auto) 400 (0-450) /uL Baso # (Auto) 100 (0-100) /uL PT 10.4 (9.4-12.5) SECONDS INR 0.9 (0.9-1.3) APTT 30 (25.1-36.5) SECONDS Sodium 137 (137-145) mmol/L Potassium 4.0 (3.4-5.1) mmol/L Chloride 105 (98-107) mmol/L Carbon Dioxide 24 (22-32) mmol/L BUN 14 (7-17) mg/dL Creatinine 0.57 (0.52-1.04) mg/dL Estimated GFR > 60 (>60) mL/min BUN/Creatinine Ratio 24.6 H (6-22) Glucose 95 (70-99) mg/dL Calcium 8.7 (8.4-10.2) mg/dL Magnesium 2.0 (1.6-2.3) mg/dL Total Bilirubin 0.3 (0.2-1.3) mg/dL AST 18 (14-36) IU/L ALT 19 (<35) IU/L Alkaline Phosphatase 53 (38-126) U/L Total Creatine Kinase 26 L (30-135) U/L Troponin I < 0.012 (0.01-0.034) ng/mL NT-Pro-B Natriuret Pep 28 (<125) pg/mL Total Protein 6.7 (6.3-8.2) g/dL Albumin 4.0 (3.5-5.0) g/dL Globulin 2.7 (1.7-4.1) g/dL Albumin/Globulin Ratio 1.5 (1.0-2.8) Lipase 74 (23-300) U/L Urine RBC 0-1/hpf (0-5/HPF) Urine WBC 0-1/hpf (0-5/HPF) Ur Squamous Epith Cells 0-1 /hpf (0-5/HPF) Urine Bacteria Occasional (0-1) (None) Ur Culture Indicated? Cult not indicated Vol Urine Centrifuged 10ml (spun) Point of Care Testing Test Results Negative Urine Dip Bedside Urine Glucose Negative Bedside Urine Bilirubin - Negative Bedside Urine Ketone - Negative Urine Specific [place] 1.005 Bedside Urine Occult Blood - Negative Bedside Urine pH 6.5 Bedside Urine Protein - Negative Bedside Urine Urobilinogen - Negative Bedside Urine Nitrite - Negative Bedside Urine Leukocytes +/- 15 Esterase Imaging Data Chest CTA: Radiologist's Impression: PROCEDURE: CT ANGIO CHEST PE PROTOCOL INDICATIONS: mid thoracic pain rad around ribs to chest BL w deep breath TECHNIQUE: After the administration of intravenous contrast, 2 mm thick sections acquired from the pulmonary apices to the posterior costophrenic angles. 3-dimensional maximum intensity projection (MIP) coronal and sagittal reformats were then acquired through the thorax. For radiation dose reduction, the following was used: automated exposure control, adjustment of mA and/or kV according to patient size. COMPARISON: None. FINDINGS: Image quality: Diagnostic. Pulmonary arteries: Pulmonary arteries are normal in size, and demonstrate no intraluminal filling defects to suggest central pulmonary embolism. Lower Neck: No enlarged lymph nodes. Thyroid: No thyroid nodules which require sonographic follow up, per consensus guidelines. Axillae: No enlarged lymph nodes. Chest Wall: Unremarkable. Bones: Unremarkable. Lungs and Pleura: No pneumothorax or pleural effusions. No consolidation or suspicious nodules. Heart: Heart size is normal. No pericardial effusion. Thoracic Vessels: No aortic aneurysm. Mediastinum and [place]ena[place]: No enlarged lymph nodes. Esophagus: No wall thickening. No hiatal hernia. Patulous esophagus. Upper Abdomen: 2 cm gallstone at the gallbladder neck, with gallbladder hydrops. IMPRESSION: No pulmonary embolus. 2 cm stone at the gallbladder neck, with gallbladder hydrops. Ultrasound to follow. Patulous esophagus, which may indicate scleroderma or esophageal dysmotility. Dictated by: Micha Her M.D. on 08/09/2025 at 18:21 Approved by: Micha Her M.D. on 08/09/2025 at 18:22 RUQ US: Radiologist's Impression: PROCEDURE: US ABDOMEN LIMITED INDICATIONS: gallstone on CT, BL Upper quadrant pain TECHNIQUE: Real-time scanning was performed of the abdominal and retroperitoneal organs, with image documentation. COMPARISON: None. FINDINGS: Liver: Increased liver echogenicity, likely mild hepatic steatosis. Gallbladder: Non mobile gallstone at the neck. Gallbladder hydrops, positive sonographic Jones sign and focal wall thickening up to 4.2 cm. Biliary ducts: Intrahepatic bile ducts are non-dilated. Extrahepatic bile duct caliber measures 5 mm. Normal is 6-7 mm or less in diameter, or 10 mm or less post-cholecystectomy. Pancreas: Not seen due to overlying bowel gas. Miscellaneous: No free abdominal fluid. IMPRESSION: Acute cholecystitis. No biliary dilation to suggest choledocholithiasis. Dictated by: Micha Her M.D. on 08/09/2025 at 19:00 Approved by: Micha Her M.D. on 08/09/2025 at 19:01 [facility] Narrative Medical decision making narrative: 34-year-old female with a past medical history of lupus, currently does not have a doctor, who presents to the emergency department for her 3rd visit since 07/24/25 for bilateral back/rib pain, worse with inhalation. Patient states about 3 weeks ago she started developing mid/upper back pain that wraps around to the front of her chest/abdomen below both breasts with a deep breath. She is currently , last gave >1 year ago, has 7 children. Differential diagnosis includes but is not limited to musculoskeletal back pain, pleurisy, costochondritis, PE, pneumonia, pleural effusions, pancreatitis, etc. On exam the patient is in no acute distress, nontoxic-appearing all vital signs within normal limits. She has subjective bilateral rib pain initiating a thoracic back wrapping around to the chest with deep breath. Patient was seen in the ER on 07/24 and 08/02. On 07/24 patient was treated with 125 Solu-Medrol and prescribed prednisone 50 mg x 5 days. On 08/02 patient received Decadron in the ED followed by home prescription for dexamethasone as well. Given the persistence of her symptoms and distribution in the upper back/chest, we will obtain chest pain lab work including CTA to rule out lung abnormality. Patient reports anaphylaxis to ibuprofen therefore will not treat with aspirin at this time. We will treat patient's pain with hydrocodone acetaminophen while results are pending. CTA reveals no PE. There is a 2 cm stone in the gallbladder neck with gallbladder hydrops, ultrasound has already been ordered. Patient also has a patulous esophagus which may indicate scleroderma or esophageal dysmotility. Labs reveal persistently elevated WBC count 13.1 which may be related to recent steroids. Hemoglobin 12 hematocrit 35.5. Platelets 303. Sodium 137, potassium 4.0, BUN 14 creatinine 0.57. Normal LFTs. Undetectable troponin. Urinalysis without signs of infection. test negative. 1904: Printed and discussed CTA results with the patient. At this time she is awaiting right upper quadrant ultrasound. Due to shift change, transfer care to nighttime attending ED physician. Patient is aware and agreeable to transfer of care. 1924: Right upper quadrant ultrasound came back revealing acute cholecystitis. Updated patient on results that we will need to speak surgeon, likely require cholecystectomy. Ceftriaxone, metronidazole ordered in addition to as needed morphine Zofran. She has been NPO since 1-2pm. Request a breast pump for patient as she is and will need to pump. 1950: Spoke with Dr. Aragon, general surgery. He will admit the patient, states OR nurses will come down to get patient shortly. Patient and her mom are aware and agreeable to plan at this time. Discharge Plan Departure Patient Disposition: Admitted to Surgery Clinical Impression: Acute cholecystitis Prescriptions: No Action prednisone 50 mg tablet 50 mg PO DAILY Qty: 5 0RF dexamethasone 4 mg tablet 4 mg PO .once Qty: 3 0RF Rx Instructions: Please take at a minimum of 72 hours after your last dose if your pain gets worse. dexamethasone 4 mg tablet 4 mg PO DAILY Qty: 3 0RF Rx Instructions: Please take at least 72 hours after ER discharge Admit Date/Time: 08/09/25 19:49 Admit Provider: Franko Aragon
--- NOTE | 2025-08-09 17:54 | DI.CT.S_ITS ---
PROCEDURE: CT ANGIO CHEST PE PROTOCOL INDICATIONS: mid thoracic pain rad around ribs to chest BL w deep breath TECHNIQUE: After the administration of intravenous contrast, 2 mm thick sections acquired from the pulmonary apices to the posterior costophrenic angles. 3-dimensional maximum intensity projection (MIP) coronal and sagittal reformats were then acquired through the thorax. For radiation dose reduction, the following was used: automated exposure control, adjustment of mA and/or kV according to patient size. COMPARISON: None. FINDINGS: Image quality: Diagnostic. Pulmonary arteries: Pulmonary arteries are normal in size, and demonstrate no intraluminal filling defects to suggest central pulmonary embolism. Lower Neck: No enlarged lymph nodes. Thyroid: No thyroid nodules which require sonographic follow up, per consensus guidelines. Axillae: No enlarged lymph nodes. Chest Wall: Unremarkable. Bones: Unremarkable. Lungs and Pleura: No pneumothorax or pleural effusions. No consolidation or suspicious nodules. Heart: Heart size is normal. No pericardial effusion. Thoracic Vessels: No aortic aneurysm. Mediastinum and [place]ena[place]: No enlarged lymph nodes. Esophagus: No wall thickening. No hiatal hernia. Patulous esophagus. Upper Abdomen: 2 cm gallstone at the gallbladder neck, with gallbladder hydrops. IMPRESSION: No pulmonary embolus. 2 cm stone at the gallbladder neck, with gallbladder hydrops. Ultrasound to follow. Patulous esophagus, which may indicate scleroderma or esophageal dysmotility. Dictated by: Micha Her M.D. on 08/09/2025 at 18:21 Approved by: Micha Her M.D. on 08/09/2025 at 18:22
[2025-08-09 18:11] LABS: Culture Indicated Urine Cult Not Indicated
--- NOTE | 2025-08-09 18:14 | DI.US.S_ITS ---
PROCEDURE: US ABDOMEN LIMITED INDICATIONS: gallstone on CT, BL Upper quadrant pain TECHNIQUE: Real-time scanning was performed of the abdominal and retroperitoneal organs, with image documentation. COMPARISON: None. FINDINGS: Liver: Increased liver echogenicity, likely mild hepatic steatosis. Gallbladder: Non mobile gallstone at the neck. Gallbladder hydrops, positive sonographic Jones sign and focal wall thickening up to 4.2 cm. Biliary ducts: Intrahepatic bile ducts are non-dilated. Extrahepatic bile duct caliber measures 5 mm. Normal is 6-7 mm or less in diameter, or 10 mm or less post-cholecystectomy. Pancreas: Not seen due to overlying bowel gas. Miscellaneous: No free abdominal fluid. IMPRESSION: Acute cholecystitis. No biliary dilation to suggest choledocholithiasis. Dictated by: Micha Her M.D. on 08/09/2025 at 19:00 Approved by: Micha Her M.D. on 08/09/2025 at 19:01
[2025-08-09 18:24] LABS: Add Manual Diff / Slide Review NO; Hematocrit 35.5 % (36-46); Hemoglobin 12.0 g/dL (12.0-16.0); Lymphocytes Absolute Auto 4800 /uL (1100-4500); Mean Corpuscular HGB Conc 33.7 % (30-36); Mean Corpuscular Hemoglobin 30.9 PG (26-34); Mean Corpuscular Volume 91.7 fL (80-100); Platelet Count 303 X10^3/uL (150-400)
[2025-08-09 18:31] LABS: INR 0.9 (0.9-1.3); Prothrombin Time 10.4 SECONDS (9.4-12.5)
[2025-08-09 18:34] LABS: PTT Partial Thromboplastin Tim 30 SECONDS (25.1-36.5)
[2025-08-09 18:36] LABS: Alanine Aminotransferase 19 IU/L (<35); Albumin 4.0 g/dL (3.5-5.0); Albumin Globulin Ratio 1.5 (1.0-2.8); Alkaline Phosphatase 53 U/L (38-126); Blood Urea Nitrogen 14 mg/dL (7-17); Calcium 8.7 mg/dL (8.4-10.2); Carbon Dioxide 24 mmol/L (22-32); Chloride 105 mmol/L (98-107); Creatine Kinase 26 U/L (30-135); Estimated Glomerular Filt Rate > 60 mL/min (>60); Globulin 2.7 g/dL (1.7-4.1); Glucose 95 mg/dL (70-99); HEMOLYSIS < 15 (0-50); Lipase 74 U/L (23-300); Magnesium 2.0 mg/dL (1.6-2.3); Potassium 4.0 mmol/L (3.4-5.1); Sodium 137 mmol/L (137-145); Total Protein 6.7 g/dL (6.3-8.2)
[2025-08-09 18:47] LABS: NT-proBNP (BNP-Adult 18+) 28 pg/mL (<125); Troponin I < 0.012 ng/mL (0.01-0.034)
[2025-08-09] MEDS: SODIUM CHLORIDE 0.9% 1,000 ML 1000 ML IV (19:05)
[2025-08-09] MEDS: MORPHINE 4 MG/ML INJ IV (19:39)
[2025-08-09] MEDS: ONDANSETRON 4 MG/2 ML INJ IV (19:40)
[2025-08-09] MEDS: metroNIDAZOLE 500 MG/100 ML PIGGYBACK 100 MG IV (19:41)
--- NOTE | 2025-08-09 21:09 | PC.NURSE ---
Pt left unit to surgery
[2025-08-09 21:20] VITALS: BP 109/63; PULSE 77; RESP 20; TEMP 36.6; O2SAT 98
[2025-08-09] MEDS: LACTATED RINGERS 1,000 ML 42 ML IV (21:30)
--- NOTE | 2025-08-09 21:31 | PM.HP.IH.1 ---
History of Present Illness History of Present Illness Date Patient Seen: 08/09/25 Time Patient Seen: 21:31 Chief complaint: Upper back pain, worsens with inhalation Narrative: 34yo F presents through ED with acute cholecystitis, u/s shows hydrops. WBC 13. LFTs normal. Plan lap choley with gram tonight. [facility] Medical History HSV-1 infection Surgical History H/O oral surgery Social History marital status: number of children: 6 household members: family and children lives independently: Yes caregiver/support person: No housing: house education level: college do you feel safe at home: Yes Meds Home Medications and Allergies Home Medications ?Medication ?Instructions ?Recorded ?Confirmed ?Type prednisone 50 mg tablet 50 mg PO DAILY #5 tabs 07/24/25 Rx dexamethasone 4 mg tablet 4 mg PO .once #3 tabs 08/02/25 Rx dexamethasone 4 mg tablet 4 mg PO DAILY #3 tabs 08/02/25 Rx Allergies Allergy/AdvReac Type Severity Reaction Status Date / Time ibuprofen Allergy Severe Anaphylaxis Verified 08/02/25 08:51 Exam Vital Signs (past 8 hours): - 08/09/25 17:37 Temperature 98.6 F Pulse Rate 75 Respiratory Rate 18 Blood Pressure 126/76 Pulse Oximetry 99 Oxygen Delivery Method Room Air Oxygen Delivery Method Room Air Narrative Exam Narrative: Const General: healthy appearing, comfortable and no acute distress Orientation: alert and oriented x3 HENMT Ears: hearing grossly normal bilaterally Eyes Visual Alvarez: normal visual alvarez by confrontation Conjunctivae: conjunctivae normal Sclera: sclerae normal EOM: EOM intact bilaterally Resp Effort & Inspection: normal respiratory effort and able to speak in complete sentences Cardio Rate: regular rate GI Palpation: soft, +RUQ pain Extrem General: no pedal edema and no calf tenderness Objective Labs 08/09/25 18:18 08/09/25 18:18 Labs: Laboratory Results - last 24 hr 08/09/25 08/09/25 17:47 18:18 WBC 13.1 H RBC 3.87 L Hgb 12.0 Hct 35.5 L MCV 91.7 MCH 30.9 MCHC 33.7 RDW 14.1 Plt Count 303 Neut % (Auto) 51.8 Lymph % (Auto) 36.7 [place] % (Auto) 8.1 Eos % (Auto) 2.9 Baso % (Auto) 0.5 Neut # (Auto) 6800 Lymph # (Auto) 4800 H [place] # (Auto) 1100 H Eos # (Auto) 400 Baso # (Auto) 100 PT 10.4 INR 0.9 APTT 30 Sodium 137 Potassium 4.0 Chloride 105 Carbon Dioxide 24 BUN 14 Creatinine 0.57 Estimated GFR > 60 BUN/Creatinine Ratio 24.6 H Glucose 95 Calcium 8.7 Magnesium 2.0 Total Bilirubin 0.3 AST 18 ALT 19 Alkaline Phosphatase 53 Total Creatine Kinase 26 L Troponin I < 0.012 NT-Pro-B Natriuret Pep 28 Total Protein 6.7 Albumin 4.0 Globulin 2.7 Albumin/Globulin Ratio 1.5 Lipase 74 Urine RBC 0-1/hpf Urine WBC 0-1/hpf Ur Squamous Epith Cells 0-1 /hpf Urine Bacteria Occasional (0-1) Ur Culture Indicated? Cult not indicated Vol Urine Centrifuged 10ml (spun) Assessment & Plan Assessment and plan (1) Acute cholecystitis: Status: Acute (2) Hydrops of gallbladder: Status: Acute Plan Plan laparoscopic cholecystectomy with cholangiogram. The risks, benefits and options regarding the procedure were explained to the patient in detail. Risk discussion included but not limited to: infection, bleeding, injury to bile duct, abscess, drain, bile leak, open incision. The patient was encouraged to ask questions and they were answered to their satisfaction. The patient understands and is agreeable to proceed. Time-Based Coding :: [TOTAL MINUTES] spent with patient and on the chart (including review of chart, obtaining history, exam, reviewing outside data, placing orders, documenting exam and treatment plan, and counseling patient) on [DATE]. PROFEE Academic Interventionist Document charge(s): Yes Charge Codes Initial inpatient/observation care: [id number]
--- NOTE | 2025-08-09 22:00 | DI.RAD.S_ITS ---
PROCEDURE: XR CHOLANGIOGRAM OPERATIVE INDICATIONS: lap choley COMPARISON: [facility], US, US ABDOMEN LIMITED, 08/09/2025, 18:42. FINDINGS: Biliary ducts: The surgeon injected contrast into the biliary ducts after cannulation of the cystic duct stump. Visualized intra- and extrahepatic bile ducts are normal in caliber, without strictures. No intraluminal filling defects to suggest retained ductal stones or sludge. Possible appearance of contrast extravasation at the surgical clip. Duodenum: Contrast flows promptly through the sphincter of Oddi into the duodenum, which appears normal in caliber. IMPRESSION: Possible contrast extravasation at surgical clip. Recommend correlation to real-time operative report as limited images may be reflective of artifact. Dictated by: Monisha Roche M.D. on 08/10/2025 at 1:26 Approved by: Monisha Roche M.D. on 08/10/2025 at 1:27
--- NOTE | 2025-08-09 23:20 | SUR.OPER ---
Supine on padded OR bed, head on pillow, safety belt at thigh, bilateral arms padded and tucked at sides. safety strap across thigh, Legs uncrossed. Padded footboard in place. Tape over blanket to secure lower legs.
[2025-08-10] VITALS (12 sets, daily range): BP systolic 109–126; BP diastolic 56–77; PULSE 81–96; RESP 16–18; TEMP 36.6–37.3; O2SAT 92–94; BMI 30.7
[2025-08-10] MEDS: BUPivacaine 0.25% W/ EPI (PF) 30 ML VIAL 60 ML INJ
[2025-08-10] MEDS: LACTATED RINGERS 1,000 ML 42 ML IV (00:51)
[2025-08-10] MEDS: ONDANSETRON 4 MG/2 ML INJ IV ×2 (00:52→05:48)
--- NOTE | 2025-08-10 01:02 | PM.OP.1 ---
Operative Date/Time/Diagnoses Date of procedure: 08/10/25 Time of procedure: 01:03 Pre-op diagnosis: Acute cholecystitis, hydrops Post-op diagnosis: same Procedure & Clinicians Procedure: Laparoscopic cholecystectomy with cholangiogram, RUQ drain Same procedure(s) as scheduled: Yes Indications: 34yo F admitted through ED with acute cholecystitis Surgeon: Franko Aragon Assisted?: No Anesthesia Type: General Operative Notes Findings: Hydrops of the gallbladder, severe acute and chronic inflammation. Closure Type: primary Specimen(s): other (gallbladder) Prosthetic devices, grafts, tissues, transplants, or devices: RUQ 15 Fr Jared channel drain Applied: drain(s) Estimated Blood Loss (mL): 50 Blood products transfused: none Procedure in detail: After informed consent and satisfactory general endotracheal anesthesia, the abdomen was prepped and draped in the usual sterile manner. The patient received appropriate preoperative antibiotics and DVT prophylaxis. Surgical time-out was performed with all team members in agreement. The pneumoperitoneum was established under direct vision using the Rosenbaum direct trocar cutdown technique. An 0 Vicryl [id number]-rn-[id number] suture was placed in the fascia. A 10 mm 30 degree lens was inserted and no trauma secondary to the trocar insertion was noted. We performed bilateral laparoscopic TAP blocks injecting 25 cc of 0.25% Marcaine with epinephrine into the transversus abdominis musculature for preemptive analgesia. The remaining 10 cc of local was used in the skin. We inserted the 3 right upper quadrant 5 mm trocars under direct vision. The patient was placed in reverse Trendelenburg [id number] position. The gallbladder was noted to be acutely inflamed and distended. It was extremely intrahepatic, more than 50% of the gallbladder being intrahepatic. We had to decompress the gallbladder by aspirating 200 cc of infected mucus with an orange tint to it. The fluid was very turbid and very thick with purulence. Aspiration allowed grasping of the gallbladder. There was a large stone impacted in the neck of the gallbladder which added difficulty. I cautiously dissected around the medial and lateral portion of the gallbladder with hook cautery and skeletonized the cystic duct. Every thing we touched was very friable and sanguinous. We had to use copious amounts of saline irrigation fluid to keep the surgical field clean. After tedious dissection that took a considerable amount of extra time we skeletonized the cystic duct and established a critical view of safety with a cystic duct and what appeared to be multiple cystic artery branches entering the gallbladder was segment 5 of the liver posterior. I placed a hemolock clip on the cystic duct next to the gallbladder and made a ductotomy with Metzenbaum scissors and this returned fresh healthy looking bile. We were able to achieve a cholangiogram using a yellow ureteral catheter through the Reyes clamp and this demonstrated a normal cholangiogram with no ductal dilatation and no filling defects and the contrast flowed unobstructed into the duodenum. With this, the cholangiogram catheter was removed and the cystic duct was doubly clipped and divided with Metzenbaum scissors. The individual cystic artery branches that could be seen next to the gallbladder were also doubly clipped with hemolock clips and divided. At this point the adhesions between the liver and the gallbladder were divided with hook cautery. This plane was very difficult and was significant for severe acute and chronic inflammation. There were dense adhesions and also a lot of edema. Once the gallbladder was from the liver it was placed into an endopouch and removed. The right upper quadrant was irrigated with copious amounts of saline irrigation and this was suctioned dry. I elected to leave a 15 [place] Jared channel drain that entered the most lateral right upper quadrant trocar and this was secured to the skin with 2-0 nylon. The drain was positioned into Morison's pouch. The liver bed and clips were inspected and no bleeding or bile drainage was noted. The patient is at higher risk for infra hepatic abscess and bile leaks from the liver bed. The pneumoperitoneum was released, the trocars were removed. There was no bleeding noted at the trocar sites. The 0 Vicryl [id number]-si-[id number] suture in the fascia was tied and there were no palpable fascial defects. The skin incisions were closed using 4-0 Monocryl in a subcuticular manner. The estimated blood loss was 50 cc. The instrument, sponge and needle counts were all correct x2. Dermabond glue was used as a final dressing. A drain dressing was applied to the Jared channel drain exiting the right upper quadrant. The patient was extubated in the operating room and transported to the recovery area in stable condition. Complications: none Post-operative Condition: stable Disposition: PACU Plan for aftercare: PACU then floor
[2025-08-10] MEDS: cefTRIAXone 2,000 MG in SODIUM CHLORIDE 0.9% 100 ML 200 MG IV (02:04)
[2025-08-10] MEDS: LACTATED RINGERS 1,000 ML 100 ML IV ×2 (02:10→18:32)
[2025-08-10] MEDS: metroNIDAZOLE 500 MG/100 ML PIGGYBACK 100 MG IV ×3 (03:00→18:33)
[2025-08-10 06:32] LABS: Add Manual Diff / Slide Review NO; Hematocrit 38.1 % (36-46); Hemoglobin 12.7 g/dL (12.0-16.0); Lymphocytes Absolute Auto 500 /uL (1100-4500); Mean Corpuscular HGB Conc 33.4 % (30-36); Mean Corpuscular Hemoglobin 30.8 PG (26-34); Mean Corpuscular Volume 92.1 fL (80-100); Platelet Count 296 X10^3/uL (150-400)
[2025-08-10 06:43] LABS: Blood Urea Nitrogen 9 mg/dL (7-17); Calcium 8.5 mg/dL (8.4-10.2); Carbon Dioxide 21 mmol/L (22-32); Chloride 105 mmol/L (98-107); Estimated Glomerular Filt Rate > 60 mL/min (>60); Glucose 154 mg/dL (70-99); HEMOLYSIS < 15 (0-50); Potassium 4.3 mmol/L (3.4-5.1); Sodium 136 mmol/L (137-145)
--- NOTE | 2025-08-10 07:07 | P.PN_ITS ---
Subjective Subjective Date Patient Seen: 08/10/25 Time Patient Seen: 07:07 Interval history: Nausea overnight, expected Pain reasonably controlled Tolerating clears Exam Vital Signs (past 8 hours): - 08/10/25 00:40 08/10/25 00:45 08/10/25 00:50 Temperature 97.9 F Pulse Rate 96 H 91 H 84 Respiratory Rate 16 16 16 Blood Pressure 118/57 L 118/57 L 116/56 L Pulse Oximetry 92 94 92 Oxygen Delivery Method Room Air Room Air Room Air Oxygen Flow Rate 08/10/25 01:05 08/10/25 01:15 08/10/25 01:50 Temperature 99.1 F Pulse Rate 81 81 87 Respiratory Rate 16 16 18 Blood Pressure 115/61 118/57 L 124/73 Pulse Oximetry 92 93 93 Oxygen Delivery Method Room Air Room Air Oxygen Flow Rate 0 08/10/25 02:43 08/10/25 03:13 08/10/25 03:43 Temperature Pulse Rate 83 82 85 Respiratory Rate 17 17 17 Blood Pressure 122/68 109/66 123/73 Pulse Oximetry 92 93 92 Oxygen Delivery Method Oxygen Flow Rate 0 0 0 08/10/25 04:15 08/10/25 05:45 Temperature 98.7 F Pulse Rate 82 87 Respiratory Rate 18 18 Blood Pressure 121/70 126/75 Pulse Oximetry 92 92 Oxygen Delivery Method Oxygen Flow Rate 0 0 Oxygen Delivery Method Room Air Oxygen Flow Rate 0 GI Other: ABD: soft, incisions CDI, pain appropriate for postop, drain serosang Objective Labs 08/10/25 06:25 08/10/25 06:25 Labs: Laboratory Results - last 24 hr 08/09/25 08/09/25 08/10/25 17:47 18:18 06:25 WBC 13.1 H 12.6 H RBC 3.87 L 4.14 Hgb 12.0 12.7 Hct 35.5 L 38.1 MCV 91.7 92.1 MCH 30.9 30.8 MCHC 33.7 33.4 RDW 14.1 13.7 Plt Count 303 296 Neut % (Auto) 51.8 94.4 H D Lymph % (Auto) 36.7 3.8 L D Kidder % (Auto) 8.1 1.6 L Eos % (Auto) 2.9 0.0 L Baso % (Auto) 0.5 0.2 Neut # (Auto) 6800 13211 H Lymph # (Auto) 4800 H 500 L Kidder # (Auto) 1100 H 200 Eos # (Auto) 400 0 Baso # (Auto) 100 0 PT 10.4 INR 0.9 APTT 30 Sodium 137 136 L Potassium 4.0 4.3 Chloride 105 105 Carbon Dioxide 24 21 L BUN 14 9 Creatinine 0.57 0.53 Estimated GFR > 60 > 60 BUN/Creatinine Ratio 24.6 H 17.0 Glucose 95 154 H Calcium 8.7 8.5 Magnesium 2.0 Total Bilirubin 0.3 AST 18 ALT 19 Alkaline Phosphatase 53 Total Creatine Kinase 26 L Troponin I < 0.012 NT-Pro-B Natriuret Pep 28 Total Protein 6.7 Albumin 4.0 Globulin 2.7 Albumin/Globulin Ratio 1.5 Lipase 74 Urine RBC 0-1/hpf Urine WBC 0-1/hpf Ur Squamous Epith Cells 0-1 /hpf Urine Bacteria Occasional (0-1) Ur Culture Indicated? Cult not indicated Vol Urine Centrifuged 10ml (spun) PFSH Medical History HSV-1 infection Surgical History H/O oral surgery Social History marital status: number of children: 6 household members: family and children lives independently: Yes caregiver/support person: No housing: house education level: college do you feel safe at home: Yes Smoking Status: Never smoker alcohol intake: never Assessment & Plan Assessment and plan (1) Hydrops of gallbladder: Status: Acute (2) Acute cholecystitis: Status: Acute Plan POD#1 lap choley for severe acute cholecystitis, hydrops Drain 40cc overnight Question of Luschka duct on cholangiogram, monitor, may need ERCP Time-Based Coding :: [TOTAL MINUTES] spent with patient and on the chart (including review of chart, obtaining history, exam, reviewing outside data, placing orders, documenting exam and treatment plan, and counseling patient) on [DATE]. 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
--- NOTE | 2025-08-10 08:45 | CM.DANOTE ---
Initial DCP Assessment Note. Review EMR and PT Interview. Met with patient at bedside to discuss discharge needs.PT is alert x 4 sitting up in chair. No acute distress. Independent. Payor:??CASS PCP: Summary & Plan:?34 y.o female arrived to ED via POV c/o abd pain. Admitted OBS. Dx. Acute Gall Bladder. Plan: Surgery. DC home when improved. Discharge Planning/Care Management CM Discharge Assessment Start: 08/09/25 21:55 Freq: Status: Active Protocol: Document 08/10/25 08:36 (Rec: 08/10/25 08:42 [id number]) Discharge Planning Assessment Assigned Discharge Angelic Casarez RN CM [employer] [facility] [address] Insurance [place] Advance Directives? No History Provided By Patient,Family Member Has Patient been No admitted in last 30 days? Prior Living House Arrangements Household Members family,children Type of Drives own vehicle transporation used prior to admit Independent with ADL Yes 's Is patient alert and Yes oriented? Caregiver for No Another Barriers to No Discharge Referrals Initiated None needed Review Status In Process Please Provide Date 08/10/25 Initial DC Assessment Was Performed Next Review Type Continued Stay Review
--- NOTE | 2025-08-10 09:14 | CM.DPC ---
Follow up appointment with YARIEL Bedoya 08/24/25 at 10:30 am. patient aware.
[2025-08-10] MEDS: DOCUSATE 100 MG CAPSULE PO ×2 (09:15→20:55)
[2025-08-10] MEDS: HEPARIN 5,000 UNIT/ML VIAL 5000 UNIT SUBCUT ×2 (09:27→20:55)
[2025-08-11 00:15] VITALS: BP 125/69; PULSE 72; RESP 16; TEMP 36.1; O2SAT 95
[2025-08-11] MEDS: cefTRIAXone 2,000 MG in SODIUM CHLORIDE 0.9% 100 ML 200 MG IV (01:29)
[2025-08-11] MEDS: metroNIDAZOLE 500 MG/100 ML PIGGYBACK 100 MG IV ×2 (02:22→09:42)
[2025-08-11] MEDS: LACTATED RINGERS 1,000 ML 100 ML IV (03:59)
[2025-08-11 07:45] VITALS: BP 109/70; PULSE 79; RESP 18; TEMP 36.3; O2SAT 98
[2025-08-11] MEDS: HEPARIN 5,000 UNIT/ML VIAL 5000 UNIT SUBCUT (09:41)
[2025-08-11] MEDS: DOCUSATE 100 MG CAPSULE PO (09:42)
--- NOTE | 2025-08-11 10:35 | PM.PN.IH.1 ---
Subjective Subjective Date Patient Seen: 08/11/25 Time Patient Seen: 10:35 Interval history: Doing well today Exam Vital Signs (past 8 hours): - 08/11/25 07:45 Temperature 97.4 F L Pulse Rate 79 Respiratory Rate 18 Blood Pressure 109/70 Pulse Oximetry 98 Oxygen Flow Rate 0 Oxygen Delivery Method Room Air Oxygen Flow Rate 0 Narrative Exam Narrative: Abdomen is soft Incisions clean dry and intact Drain output is mostly serosanguineous with a hint of bile Objective Labs 08/10/25 06:25 08/10/25 06:25 PFSH Medical History HSV-1 infection Surgical History H/O oral surgery Social History marital status: number of children: 6 household members: family and children lives independently: Yes caregiver/support person: No housing: house education level: college do you feel safe at home: Yes alcohol intake: never Assessment & Plan Assessment and plan (1) Hydrops of gallbladder: Status: Acute Plan Plan to discharged home today after lunch Drain teaching given She can come in for drain removal next week when the output has decreased Time-Based Coding :: [TOTAL MINUTES] spent with patient and on the chart (including review of chart, obtaining history, exam, reviewing outside data, placing orders, documenting exam and treatment plan, and counseling patient) on [DATE]. 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
--- NOTE | 2025-08-11 10:44 | PM.DS.IH.1 ---
History of Present Illness History of Present Illness Chief complaint: Upper back pain, worsens with inhalation Discharge Providers Provider Date of admission: 08/09/25 19:49 Discharge Date: 08/11/25 Consults: 08/09/25 17:49 Consult to [facility] [place] - Supervisor Transferring And Boxing Stat Comment: Supervisor Transferring And Boxing Consult needed for:: Other reason (Comment) Comment: Needs help getting a PCP / follow-up appointment. Her appointment isn't until 10/26/25. Discharge provider: Matthew Jarrett MD Summary Hospital Course Discharge Diagnosis: Acute cholecystitis Hospital Course: The patient underwent a laparoscopic cholecystectomy with an intraoperative cholangiogram. She was discharged home on August 11, 2025 with her drain in place. She was given instructions on managing drain and she will be scheduled for removal of the drain in the office at the appropriate time. Exam Vital Signs (past 8 hours): - 08/11/25 07:45 Temperature 97.4 F L Pulse Rate 79 Respiratory Rate 18 Blood Pressure 109/70 Pulse Oximetry 98 Oxygen Flow Rate 0 Oxygen Delivery Method Room Air Oxygen Flow Rate 0 Objective Labs 08/10/25 06:25 08/10/25 06:25 PFSH Medical History HSV-1 infection Surgical History H/O oral surgery Social History marital status: number of children: 6 household members: family and children lives independently: Yes caregiver/support person: No housing: house education level: college do you feel safe at home: Yes alcohol intake: never Discharge Plan Discharge Plan Patient Disposition: Home Provider Discharge Comment: No lifting greater than 30 lb for 2 weeks. Record drain output daily and contact [facility] office when output is less than 50 mL per day for two days in a row Discharge orders & Medications Prescriptions: New hydrocodone-acetaminophen 5-325 mg tablet 1 tab PO Q8H PRN (Reason: pain) Qty: 14 0RF Visit Report/Discharge Packet Stand Alone Forms: Patient Portal/API, Stroke Signs & Symptoms Discharge Data Attending Provider: Franko Aragon Admit Date/Time: 08/09/25 19:49 Quality VTE Deep Vein Thrombosis/Pulmonary Embolism Present on Admission: No IH PROFEE Charge Codes Discharge inpatient/observation: [id number]
--- NOTE | 2025-08-11 13:55 | PC.NURSE ---
Discharge instructions given and understood by pt. Prescribed medication given per ED protocol due to closure of pharmacy on holiday. PIV removed. Dressing change supplied. Pt discharged with pt's via private vehicle, escorted via wheelchair.
== END 2025-08-11 13:45 | disposition home or self-care (01) ==
LOC: ED 17:37 → AC 19:50
PROVIDERS: Admitting Provider Surgery; Emergency Provider Physician Assistant; Referring Provider Physician Assistant; Visit Provider Surgery
PROC: 0FT44ZZ Resection of Gallbladder, Percutaneous Endoscopic Approach (ICD-10-PCS; CPT 47562; principal; 2025-08-09 22:00)
DX: K80.12 Calculus of gallbladder with acute and chronic cholecystitis without obstruction (principal); K82.1 Hydrops of gallbladder
CPT/HCPCS: 47563; 36415; 71045; 71275; 74300; 76705; 80048; 80053; 81003; 81015; 81025; 82550; 83690; 83735; 83880; 84484; 85025; 85610; 85730; 93005; 96365; 96366; 96367; 96368; 96372; 96375; 99284; G0378; J0330; J0696; J1100; J1171; J1644; J2272; J2405; J2704; J3010; J3490; J7030; J7050; J7120; Q9967

== ENCOUNTER 2025-08-14 05:31 | Emergency (ER) | payer OTHER, SELFPAY ==
[2025-08-10 01:42] VITALS: BMI 30.7
[2025-08-14] VITALS (14 sets, daily range): BP systolic 113–128; BP diastolic 60–77; PULSE 68–92; RESP 16–24; TEMP 36.4–37.1; O2SAT 94–100
--- NOTE | 2025-08-14 05:34 | ED_ITS ---
HPI - Abdominal Pain <Darryl Arora DO - Last Filed: 08/14/25 06:42> General Chief Complaint: Abdominal Pain Stated Complaint: Severe abdominal pain, poss blockage, lightheaded Time Seen by Provider: 08/14/25 05:34 History of Present Illness HPI narrative: Patient is a 35-year-old female with a past medical history of lupus, comes into the ED from home for evaluation of abdominal pain states that he had sudden onset worsening abdominal pain this morning, to note she had a laparoscopic cholecystectomy with cholangiogram with drain placement performed here at [facility] by Dr. Aragon on 08/10/2025. She states that she was doing okay but had sudden onset abdominal pain started last night, she states that she did try taking her Percocet without any relief. She denies trauma or falls, she states that her postop follow up is on the . She states that the pain does make her feel lightheaded but denies any actual headache visual disturbance chest pain shortness breath fever chills nausea vomiting abdominal pain or any other GI/ symptoms at a time. Related Data Previous Rx's ?Medication ?Instructions ?Recorded hydrocodone 5 mg-acetaminophen 325 1 tab PO Q8H PRN pa in #14 tabs 08/11/25 mg tablet Allergies Allergy/AdvReac Type Severity Reaction Status Date / Time ibuprofen Allergy Severe Anaphylaxis Verified 08/02/25 08:51 Review of Systems <Darryl Arora DO - Last Filed: 08/14/25 06:42> Review of Systems Narrative: General: Denies fever, chills, weight loss HEENT: Denies headache, eye drainage, eye irritation, head trauma, sore throat, voice change Cardiovascular: Denies any chest pain, palpitations, tachycardia Respiratory: Denies any shortness of breath, cough, wheeze, stridor GI/: Positive abdominal pain, nausea, denies vomiting, diarrhea, bright red blood per rectum, melanotic stools, urinary frequency, urinary retention, dysuria, hematuria MSK: Denies any joint pain, muscle pains, swelling Skin: Denies any rashes, lesions, discoloration Neuro: Denies any headache, lightheadedness, dizziness, fainting, weakness Psych: Denies SI/HI Patient History <DO Alisha Arredondo Last Filed: 08/14/25 06:42> Medical History HSV-1 infection Surgical History H/O oral surgery Social History marital status: number of children: 6 household members: family and children lives independently: Yes caregiver/support person: No housing: house education level: college do you feel safe at home: Yes alcohol intake: never Exam <Darryl Arora, DO - Last Filed: 08/14/25 06:42> Narrative Exam Narrative: General: Cooperative, well-developed, not in acute distress HEENT: Normocephalic, atraumatic, PERRLA, normal sclera, eyelids normal Neck: Active full range of motion, atraumatic Chest: Normal to inspection, negative crepitus, no overlying erythema ecchymosis Respiratory: Normal respiratory effort, not in acute respiratory distress, clear to auscultation bilaterally negative cough, wheeze, tachypnea, rhonchi, rales Cardiology: Regular rate rhythm negative gallop, murmur, rubs GI/: Patient with brain noted to the right side of the abdomen, patient tender diffusely but soft non peritoneal nature, exam deferred MSK: Full active range of motion in all 4 extremities, atraumatic, no tenderness to palpation of any bony prominences Skin: No rashes or lesions noted Neuro: Alert awake oriented x3, moves all 4 extremities spontaneously, cranial nerves intact, able to answer all questions appropriately follows commands appropriately Psych: Cooperative, negative suicidal or homicidal ideations Initial Vital Signs Initial Vital Signs: Vital Signs Temperature 97.5 F L 08/14/25 05:50 Pulse Rate 73 08/14/25 05:50 Respiratory Rate 24 08/14/25 05:50 Blood Pressure 126/77 08/14/25 05:50 Pulse Oximetry 99 08/14/25 05:50 Oxygen Delivery Method Room Air 08/14/25 05:50 <Alexis Smith, DO - Last Filed: 08/14/25 10:26> Initial Vital Signs Initial Vital Signs: Vital Signs Temperature 97.5 F L 08/14/25 05:50 Pulse Rate 73 08/14/25 05:50 Respiratory Rate 24 08/14/25 05:50 Blood Pressure 126/77 08/14/25 05:50 Pulse Oximetry 99 08/14/25 05:50 Oxygen Delivery Method Room Air 08/14/25 05:50 Course <Darryl OsborneDO alejandrina - Last Filed: 08/14/25 06:42> Orders Ordered: ED Orders 08/14/25 05:35 CT abdomen pelvis w con Stat 08/14/25 05:45 CBC Auto Diff [Complete Blood Count AUTO DIFF] Stat CMP [Comprehensive Metabolic Panel] Stat Lactate (Lactic Acid) Stat Lipase Stat MAG [Magnesium] Stat 08/14/25 06:30 Blood Culture Stat 08/14/25 08:13 Lactate (Lactic Acid) Stat Lipase Stat Discontinued Medications Hydromorphone HCl (Hydromorphone 1 Mg/Ml Syringe) 1 mg IV NOW ONE Stop: 08/14/25 05:41 Last Admin: 08/14/25 05:49 Dose: 1 mg Documented By: MAXIMILIANO Sodium Chloride (Normal Saline 0.9%) 1,000 mls @ 1,000 mls/hr IV BOLUS ONE Stop: 08/14/25 06:34 Last Infusion: 08/14/25 07:00 Dose: Infused Documented By: Admin: 08/14/25 05:49 Dose: 1,000 mls/hr Documented By: MAXIMILIANO Piperacillin Sod/Tazobactam (Sod 4.5 gm/ Sodium Chloride) 100 mls @ 200 mls/hr IV STAT ONE Stop: 08/14/25 06:06 Last Infusion: 08/14/25 07:10 Dose: Infused Documented By: Admin: 08/14/25 06:36 Dose: 200 mls/hr Documented By: MAXIMILIANO Ondansetron HCl (Ondansetron 4 Mg/2 Ml Inj) 4 mg IV NOW ONE Stop: 08/14/25 05:41 Last Admin: 08/14/25 05:49 Dose: 4 mg Documented By: MAXIMILIANO Vital Signs Vital signs: Vital Signs - 8 hr 08/14/25 05:50 08/14/25 05:56 08/14/25 05:56 Temperature 97.5 F L Pulse Rate 73 68 Respiratory Rate 24 Blood Pressure 126/77 126/77 Pulse Oximetry 99 97 Oxygen Delivery Method Room Air 08/14/25 06:00 08/14/25 06:00 08/14/25 06:32 Temperature Pulse Rate 79 79 Respiratory Rate Blood Pressure 122/72 Pulse Oximetry 94 99 Oxygen Delivery Method Room Air 08/14/25 06:33 08/14/25 06:33 08/14/25 06:57 Temperature Pulse Rate 80 72 Respiratory Rate Blood Pressure 128/77 Pulse Oximetry 99 100 Oxygen Delivery Method 08/14/25 07:01 08/14/25 07:21 08/14/25 07:22 Temperature Pulse Rate 88 Respiratory Rate 16 Blood Pressure 113/60 Pulse Oximetry 98 99 Oxygen Delivery Method 08/14/25 07:22 08/14/25 09:27 08/14/25 09:27 Temperature Pulse Rate 84 Respiratory Rate 16 Blood Pressure 116/61 119/66 Pulse Oximetry 98 Oxygen Delivery Method 08/14/25 10:01 Temperature 98.7 F Pulse Rate Respiratory Rate Blood Pressure Pulse Oximetry Oxygen Delivery Method <Alexis Smith, DO - Last Filed: 08/14/25 10:26> Orders Ordered: ED Orders 08/14/25 05:35 CT abdomen pelvis w con Stat 08/14/25 05:45 CBC Auto Diff [Complete Blood Count AUTO DIFF] Stat CMP [Comprehensive Metabolic Panel] Stat Lactate (Lactic Acid) Stat Lipase Stat MAG [Magnesium] Stat 08/14/25 06:30 Blood Culture Stat 08/14/25 08:13 Lactate (Lactic Acid) Stat Lipase Stat Discontinued Medications Hydromorphone HCl (Hydromorphone 1 Mg/Ml Syringe) 1 mg IV NOW ONE Stop: 08/14/25 05:41 Last Admin: 08/14/25 05:49 Dose: 1 mg Documented By: MAXIMILIANO Sodium Chloride (Normal Saline 0.9%) 1,000 mls @ 1,000 mls/hr IV BOLUS ONE Stop: 08/14/25 06:34 Last Infusion: 08/14/25 07:00 Dose: Infused Documented By: Admin: 08/14/25 05:49 Dose: 1,000 mls/hr Documented By: MAXIMILIANO Piperacillin Sod/Tazobactam (Sod 4.5 gm/ Sodium Chloride) 100 mls @ 200 mls/hr IV STAT ONE Stop: 08/14/25 06:06 Last Infusion: 08/14/25 07:10 Dose: Infused Documented By: Admin: 08/14/25 06:36 Dose: 200 mls/hr Documented By: MAXIMILIANO Ondansetron HCl (Ondansetron 4 Mg/2 Ml Inj) 4 mg IV NOW ONE Stop: 08/14/25 05:41 Last Admin: 08/14/25 05:49 Dose: 4 mg Documented By: MAXIMILIANO Vital Signs Vital signs: Vital Signs - 8 hr 08/14/25 05:50 08/14/25 05:56 08/14/25 05:56 Temperature 97.5 F L Pulse Rate 73 68 Respiratory Rate 24 Blood Pressure 126/77 126/77 Pulse Oximetry 99 97 Oxygen Delivery Method Room Air 08/14/25 06:00 08/14/25 06:00 08/14/25 06:32 Temperature Pulse Rate 79 79 Respiratory Rate Blood Pressure 122/72 Pulse Oximetry 94 99 Oxygen Delivery Method Room Air 08/14/25 06:33 08/14/25 06:33 08/14/25 06:57 Temperature Pulse Rate 80 72 Respiratory Rate Blood Pressure 128/77 Pulse Oximetry 99 100 Oxygen Delivery Method 08/14/25 07:01 08/14/25 07:21 08/14/25 07:22 Temperature Pulse Rate 88 Respiratory Rate 16 Blood Pressure 113/60 Pulse Oximetry 98 99 Oxygen Delivery Method 08/14/25 07:22 08/14/25 09:27 08/14/25 09:27 Temperature Pulse Rate 84 Respiratory Rate 16 Blood Pressure 116/61 119/66 Pulse Oximetry 98 Oxygen Delivery Method 08/14/25 10:01 Temperature 98.7 F Pulse Rate Respiratory Rate Blood Pressure Pulse Oximetry Oxygen Delivery Method MDM - Abdominal Pain <Darryl Arora, - Last Filed: 08/14/25 06:42> Lab Data 08/14/25 05:45 08/14/25 05:45 Labs: Lab Results 08/14/25 08/14/25 Range/Units 05:45 08:13 WBC 22.4 H (4.5-11.0) X10^3/uL RBC 4.64 (4.0-5.2) X10^6/uL Hgb 14.3 (12.0-16.0) g/dL Hct 42.6 (36-46) % MCV 91.9 (80-100) fL MCH 30.8 (26-34) PG MCHC 33.6 (30-36) % RDW 13.8 (11.6-14.8) % Plt Count 397 (150-400) X10^3/uL Neut % (Auto) 76.5 H (50-75) % Lymph % (Auto) 17.2 L (25-40) % [place] % (Auto) 4.1 (3-14) % Eos % (Auto) 1.7 L (2-4) % Baso % (Auto) 0.5 (0-2) % Neut # (Auto) 11740 H (0101-7813) /uL Lymph # (Auto) 3900 (3233-3001) /uL [place] # (Auto) 900 (0-900) /uL Eos # (Auto) 400 (0-450) /uL Baso # (Auto) 100 (0-100) /uL Sodium 136 L (137-145) mmol/L Potassium 3.5 (3.4-5.1) mmol/L Chloride 107 (98-107) mmol/L Carbon Dioxide 18 L (22-32) mmol/L BUN 8 (7-17) mg/dL Creatinine 0.55 (0.52-1.04) mg/dL Estimated GFR > 60 (>60) mL/min BUN/Creatinine Ratio 14.5 (6-22) Glucose 144 H (70-99) mg/dL Lactate 2.4 H 2.2 H (0.7-2.1) mmol/L Calcium 9.3 (8.4-10.2) mg/dL Magnesium 1.7 (1.6-2.3) mg/dL Total Bilirubin 0.7 (0.2-1.3) mg/dL AST 39 H (14-36) IU/L ALT 66 H (<35) IU/L Alkaline Phosphatase 76 (38-126) U/L Total Protein 7.9 (6.3-8.2) g/dL Albumin 4.6 (3.5-5.0) g/dL Globulin 3.3 (1.7-4.1) g/dL Albumin/Globulin Ratio 1.4 (1.0-2.8) Lipase 46 53 (23-300) U/L Point of care testing: Urine Dip Bedside Urine Glucose Negative Bedside Urine Bilirubin - Negative Bedside Urine Ketone - Negative Urine Specific [place] 1.010 Bedside Urine Occult Blood - Negative Bedside Urine pH 6.5 Bedside Urine Protein - Negative Bedside Urine Urobilinogen +/- 1mg Bedside Urine Nitrite - Negative Bedside Urine Leukocytes - Negative Esterase MDM Narrative Medical decision making narrative: 35-year-old female with a past medical history of lupus status post laparoscopic cholecystectomy with cholangiogram and right upper quadrant drain performed on 08/10/[address] Aragon here presents for sudden onset worsening abdominal pain started a few hours prior to arrival. She states that she has had decreased bowel movements but did have a bowel movement yesterday, she states that she has had normal amount of fluid from the drainage but believes there might be a slight slowing down/decreased with the past few hours. She denies any trauma or falls she states that she did try taking her home medication without much relief therefore came into the ED, on my exam patient with drain noted to the right side of the abdomen no surrounding erythema, patient with tenderness to palpation of the abdomen however soft and non peritoneal in nature. Patient had lab work imaging urinalysis performed here. Patient did have elevated leukocytosis of 22.4 this is increased from 12.6 on 08/10/2025, patient also had elevated lactate of 2.4, fluids have already been ordered, broad-spectrum antibiotic has been ordered (Zosyn) for concern of developing postoperative intra-abdominal process. I did review patient's operative note by Dr. Aragon which identified difficult surgery, therefore we will reach out to General surgery for consultation and recommendation. 0641: Discussed case with Dr. Jarrett, who states he will review the CT scan results, and after reviewing will call back with recommendations, agrees with the current workup at this time <Alexis Smith, DO - Last Filed: 08/14/25 10:26> Lab Data Labs: Lab Results 08/14/25 08/14/25 Range/Units 05:45 08:13 WBC 22.4 H (4.5-11.0) X10^3/uL RBC 4.64 (4.0-5.2) X10^6/uL Hgb 14.3 (12.0-16.0) g/dL Hct 42.6 (36-46) % MCV 91.9 (80-100) fL MCH 30.8 (26-34) PG MCHC 33.6 (30-36) % RDW 13.8 (11.6-14.8) % Plt Count 397 (150-400) X10^3/uL Neut % (Auto) 76.5 H (50-75) % Lymph % (Auto) 17.2 L (25-40) % [place] % (Auto) 4.1 (3-14) % Eos % (Auto) 1.7 L (2-4) % Baso % (Auto) 0.5 (0-2) % Neut # (Auto) 07718 H (7007-0397) /uL Lymph # (Auto) 3900 (2049-5733) /uL [place] # (Auto) 900 (0-900) /uL Eos # (Auto) 400 (0-450) /uL Baso # (Auto) 100 (0-100) /uL Sodium 136 L (137-145) mmol/L Potassium 3.5 (3.4-5.1) mmol/L Chloride 107 (98-107) mmol/L Carbon Dioxide 18 L (22-32) mmol/L BUN 8 (7-17) mg/dL Creatinine 0.55 (0.52-1.04) mg/dL Estimated GFR > 60 (>60) mL/min BUN/Creatinine Ratio 14.5 (6-22) Glucose 144 H (70-99) mg/dL Lactate 2.4 H 2.2 H (0.7-2.1) mmol/L Calcium 9.3 (8.4-10.2) mg/dL Magnesium 1.7 (1.6-2.3) mg/dL Total Bilirubin 0.7 (0.2-1.3) mg/dL AST 39 H (14-36) IU/L ALT 66 H (<35) IU/L Alkaline Phosphatase 76 (38-126) U/L Total Protein 7.9 (6.3-8.2) g/dL Albumin 4.6 (3.5-5.0) g/dL Globulin 3.3 (1.7-4.1) g/dL Albumin/Globulin Ratio 1.4 (1.0-2.8) Lipase 46 53 (23-300) U/L Point of care testing: Urine Dip Bedside Urine Glucose Negative Bedside Urine Bilirubin - Negative Bedside Urine Ketone - Negative Urine Specific [place] 1.010 Bedside Urine Occult Blood - Negative Bedside Urine pH 6.5 Bedside Urine Protein - Negative Bedside Urine Urobilinogen +/- 1mg Bedside Urine Nitrite - Negative Bedside Urine Leukocytes - Negative Esterase MDM Narrative Medical decision making narrative: 35-year-old female with a past medical history of lupus status post laparoscopic cholecystectomy with cholangiogram and right upper quadrant drain performed on 08/10/[address] Aragon here presents for sudden onset worsening abdominal pain started a few hours prior to arrival. She states that she has had decreased bowel movements but did have a bowel movement yesterday, she states that she has had normal amount of fluid from the drainage but believes there might be a slight slowing down/decreased with the past few hours. She denies any trauma or falls she states that she did try taking her home medication without much relief therefore came into the ED, on my exam patient with drain noted to the right side of the abdomen no surrounding erythema, patient with tenderness to palpation of the abdomen however soft and non peritoneal in nature. Patient had lab work imaging urinalysis performed here. Patient did have elevated leukocytosis of 22.4 this is increased from 12.6 on 08/10/2025, patient also had elevated lactate of 2.4, fluids have already been ordered, broad-spectrum antibiotic has been ordered (Zosyn) for concern of developing postoperative intra-abdominal process. I did review patient's operative note by Dr. Aragon which identified difficult surgery, therefore we will reach out to General surgery for consultation and recommendation 0641: Discussed case with Dr. Jarrett, who states he will review the CT scan results, and after reviewing will call back with recommendations, agrees with the current workup at this time Case d/w Dr. Jarrett who recommended HIDA scan that we have inability to complete at this time concern for biliary leak and recommended transfer to [facility]. Case discussed with general surgeon who has accepted the patient and GI has accepted patient for ERCP as a consult on the case Discharge Plan Departure Patient Disposition: [facility] Clinical Impression: Bile leak Prescriptions: No Action hydrocodone-acetaminophen 5-325 mg tablet 1 tab PO Q8H PRN (Reason: pain) Qty: 14 0RF
--- NOTE | 2025-08-14 05:35 | DI.CT.S_ITS ---
PROCEDURE: CT ABDOMEN PELVIS W CON INDICATIONS: abd pain, diffuse, recent cholecystectomy TECHNIQUE: After the administration of intravenous contrast, axial sections acquired from the lung bases to the pubic symphysis. Coronal and sagittal reformats were performed. For radiation dose reduction, the following was used: automated exposure control, adjustment of mA and/or kV according to patient size. COMPARISON: [facility], CT, CT ANGIO CHEST PE PROTOCOL, 08/09/2025, 18:04. [facility], CR, XR CHOLANGIOGRAM OPERATIVE, 08/10/2025, 0:00. [facility], US, US ABDOMEN LIMITED, 08/09/2025, 18:42. FINDINGS: Image quality: Diagnostic. Lower Chest: No significant findings. ABDOMEN: Liver: No solid mass. Gallbladder: Removed. Biliary ducts: No biliary dilation. Pancreas: No ductal dilation. Spleen: Size is within normal limits. Adrenal Glands: No adrenal nodules. Kidneys and Ureters: No hydronephrosis. No solid mass. No complex renal cystic lesion which requires follow up. Bowel and peritoneum: There is a right upper quadrant postoperative drain seen. There is a mild amount of fluid seen within the cholecystectomy bed. A small amount of free fluid can also be seen involving the right pericolic gutter. There is a small amount of free fluid also seen layering within the pelvis. There is mild wall thickening seen of the duodenum. No dilated loops of small bowel are seen. No significant colonic abnormality is seen. A normal appendix is noted. Ventral Wall: No significant ventral hernia. Abdominal Nodes: No retroperitoneal or mesenteric adenopathy by size criteria. Vessels: Aorta and inferior vena cava are normal in size. PELVIS: Pelvic Organs: A likely left ovarian hemorrhagic cyst is seen, as on series 3, image 61, measuring up to 2.2 cm. Bladder: No bladder wall thickening, accounting for underdistention. Pelvic Nodes: No enlarged lymph nodes. Miscellaneous: No inguinal hernias are seen. Bones: No aggressive osseous abnormality. IMPRESSION: Status post cholecystectomy with a right upper quadrant drain. There is a mild amount of free fluid seen within the cholecystectomy bed of the right pericolic gutter, and layering within the pelvis. - If there is strong clinical concern for a biliary leak, please consider a follow-up nuclear medicine HIDA scan for further evaluation. Additional findings: Likely left ovarian hemorrhagic cyst Dictated by: Wilson Uriarte M.D. on 08/14/2025 at 6:36 Approved by: Wilson Uriarte M.D. on 08/14/2025 at 6:46
[2025-08-14] MEDS: SODIUM CHLORIDE 0.9% 1,000 ML 1000 ML IV (05:49)
[2025-08-14] MEDS: ONDANSETRON 4 MG/2 ML INJ IV (05:49)
[2025-08-14 05:52] LABS: Add Manual Diff / Slide Review NO; Hematocrit 42.6 % (36-46); Hemoglobin 14.3 g/dL (12.0-16.0); Lymphocytes Absolute Auto 3900 /uL (1100-4500); Mean Corpuscular HGB Conc 33.6 % (30-36); Mean Corpuscular Hemoglobin 30.8 PG (26-34); Mean Corpuscular Volume 91.9 fL (80-100); Platelet Count 397 X10^3/uL (150-400)
[2025-08-14 06:02] LABS: Lactate (Lactic Acid) 2.4 mmol/L (0.7-2.1)
[2025-08-14 06:03] LABS: Alanine Aminotransferase 66 IU/L (<35); Albumin 4.6 g/dL (3.5-5.0); Albumin Globulin Ratio 1.4 (1.0-2.8); Alkaline Phosphatase 76 U/L (38-126); Blood Urea Nitrogen 8 mg/dL (7-17); Calcium 9.3 mg/dL (8.4-10.2); Carbon Dioxide 18 mmol/L (22-32); Chloride 107 mmol/L (98-107); Estimated Glomerular Filt Rate > 60 mL/min (>60); Globulin 3.3 g/dL (1.7-4.1); Glucose 144 mg/dL (70-99); HEMOLYSIS 42 (0-50); Lipase 46 U/L (23-300); Magnesium 1.7 mg/dL (1.6-2.3); Potassium 3.5 mmol/L (3.4-5.1); Sodium 136 mmol/L (137-145); Total Protein 7.9 g/dL (6.3-8.2)
[2025-08-14] MEDS: PIPERACILLIN/TAZO 4.5 GM in SODIUM CHLORIDE 0.9% 100 ML IV (06:36)
[2025-08-14 07:25] LABS: Reflexed Lactate in 2 Hours Y
--- NOTE | 2025-08-14 08:31 | PM.CN.IH.1 ---
History of Present Illness Consult details Date Patient Seen: 08/14/25 Time Patient Seen: 08:31 Chief complaint: Severe abdominal pain, poss blockage, lightheaded Reason for consult: Abdominal pain postop day 4 after laparoscopic cholecystectomy Narrative: The patient is a 35-year-old woman who underwent a laparoscopic cholecystectomy with intraoperative cholangiogram for severe acute cholecystitis with Dr. Aragon on August 09- or 4 days ago. The gallbladder was noted to be very intrahepatic. There was a cholangiogram performed during the surgery which showed the Reyes clamp appearing to be on the cystic duct, the common duct and hepatic duct are well seen. There is contrast that flowed into the duodenum. There is a subtle blush of contrast noted that appears to be coming from the cystic ductotomy however it could also have been coming from the liver bed or some other location besides the cystic duct stump. A drain was placed due to the severe nature of the acute cholecystitis. She was discharged home with the drain on August 11. At that time the drain output was quite high but it is seemed to be primarily serosanguineous with a hint of bile staining. The patient returned to the emergency department this morning because she woke up in the middle of the night with severe abdominal pain. She has been recording her drain output and her total drain output for the day yesterday was approximately 200 mL. Meds Home Medications and Allergies Home Medications ?Medication ?Instructions ?Recorded ?Confirmed ?Type hydrocodone 5 mg-acetaminophen 325 1 tab PO Q8H PRN pain #14 tabs 08/11/25 Rx mg tablet Allergies Allergy/AdvReac Type Severity Reaction Status Date / Time ibuprofen Allergy Severe Anaphylaxis Verified 08/02/25 08:51 Exam Vital Signs (past 8 hours): - 08/14/25 05:50 08/14/25 05:56 08/14/25 05:56 Temperature 97.5 F L Pulse Rate 73 68 Respiratory Rate 24 Blood Pressure 126/77 126/77 Pulse Oximetry 99 97 Oxygen Delivery Method Room Air 08/14/25 06:00 08/14/25 06:00 08/14/25 06:32 Temperature Pulse Rate 79 79 Respiratory Rate Blood Pressure 122/72 Pulse Oximetry 94 99 Oxygen Delivery Method Room Air 08/14/25 06:33 08/14/25 06:33 08/14/25 06:57 Temperature Pulse Rate 80 72 Respiratory Rate Blood Pressure 128/77 Pulse Oximetry 99 100 Oxygen Delivery Method 08/14/25 07:01 08/14/25 07:21 08/14/25 07:22 Temperature Pulse Rate 88 Respiratory Rate 16 Blood Pressure 113/60 Pulse Oximetry 98 99 Oxygen Delivery Method 08/14/25 07:22 Temperature Pulse Rate Respiratory Rate Blood Pressure 116/61 Pulse Oximetry Oxygen Delivery Method Oxygen Delivery Method Room Air Narrative Exam Narrative: Abdomen is soft without peritonitis The drain contents looks like dilute bile with a hankins tinge Objective Labs 08/14/25 05:45 08/14/25 05:45 Labs: Laboratory Results - last 24 hr 08/14/25 05:45 WBC 22.4 H RBC 4.64 Hgb 14.3 Hct 42.6 MCV 91.9 MCH 30.8 MCHC 33.6 RDW 13.8 Plt Count 397 Neut % (Auto) 76.5 H Lymph % (Auto) 17.2 L [place] % (Auto) 4.1 Eos % (Auto) 1.7 L Baso % (Auto) 0.5 Neut # (Auto) 23465 H Lymph # (Auto) 3900 [place] # (Auto) 900 Eos # (Auto) 400 Baso # (Auto) 100 Sodium 136 L Potassium 3.5 Chloride 107 Carbon Dioxide 18 L BUN 8 Creatinine 0.55 Estimated GFR > 60 BUN/Creatinine Ratio 14.5 Glucose 144 H Lactate 2.4 H Calcium 9.3 Magnesium 1.7 Total Bilirubin 0.7 AST 39 H ALT 66 H Alkaline Phosphatase 76 Total Protein 7.9 Albumin 4.6 Globulin 3.3 Albumin/Globulin Ratio 1.4 Lipase 46 PFSH Medical History HSV-1 infection Surgical History H/O oral surgery Social History marital status: number of children: 6 household members: family and children lives independently: Yes caregiver/support person: No housing: house education level: college Safety do you feel safe at home: Yes Tobacco & Substance Use alcohol intake: never Assessment & Plan Assessment and plan (1) Bile leak, postoperative: Status: Acute Plan Based on her presentation, the appearance of her drain contents and her history of severe cholecystitis with an intrahepatic gallbladder I have a strong suspicion for a bile leak, most likely from the liver bed or cystic duct stump. We are unable to perform a HIDA scan today at our hospital due to staffing. I recommend she gets transferred to a facility that can perform ERCP for a postoperative bile leak. I have explained all of my thoughts to the patient and her . They are understanding and in agreement with the plan. Time-Based Coding :: [TOTAL MINUTES] spent with patient and on the chart (including review of chart, obtaining history, exam, reviewing outside data, placing orders, documenting exam and treatment plan, and counseling patient) on [DATE]. PROFEE Charge Codes Inpatient or Observation consultation: 39412
[2025-08-14 08:34] LABS: Lactate (Lactic Acid) 2.2 mmol/L (0.7-2.1); Lipase 53 U/L (23-300)
[2025-08-14 09:53] LABS: Reflexed Lactate in 2 Hours Y
[2025-08-14 10:35] LABS: Lactate 2HR (Lactic Acid Rflx) 0.8 mmol/L (0.7-2.1)
[2025-08-14] MEDS: LACTATED RINGERS 1,000 ML 1000 ML IV (11:23)
== END 2025-08-14 12:05 | disposition short-term general hospital (02) ==
PROVIDERS: Student in an Organized Health Care Education/Training Program; Surgery; Emergency Provider Family Medicine
DX: K91.89 Other postprocedural complications and disorders of digestive system (principal); K83.8 Other specified diseases of biliary tract
CPT/HCPCS: 36415; 74177; 80053; 81003; 83605; 83690; 83735; 85025; 87040; 96365; 96375; 96376; 99284; J1171; J2405; J2543; J7030; J7050; J7120; Q9967